=== PATIENT | female | born 1985 | race Caucasian/White ===

== ENCOUNTER → 2020-05-23 08:12 | Outpatient (BNVA) | payer OTHER, SELFPAY | PROVIDERS: PCP Internal Medicine; Visit Provider Dietitian, Registered ==

== ENCOUNTER 2020-06-06 08:47 | Outpatient (REF) | payer OTHER, SELFPAY ==
[2020-06-06 09:09] LABS: MANUAL DIFF FLAG NO
[2020-06-06 09:14] LABS: Basophils Percent Auto 0.4 % (0-2); Eosinophils Absolute Auto 0.1 X10*3/uL (0.0-0.4); Eosinophils Percent Auto 1.7 % (0-4); Hematocrit 32.9 % (37-47); Hemoglobin 10.8 g/dl (12.0-16.0); Imm Gran Abs Auto 0.01 X10*3/uL (0.00-0.03); Imm Gran Pct Auto 0.2 % (0.0-0.4); Lymphocytes Absolute Auto 2.2 X10*3/uL (1.2-4.9); Lymphocytes Percent Auto 46.5 % (20-40); Mean Corpuscular HGB Conc 32.8 g/dl (31.0-35.0); Mean Corpuscular Hemoglobin 25.1 pg (27.0-33.0); Mean Corpuscular Volume 76.3 fL (80-98); Mean Platelet Volume 9.4 fL (9.4-12.3); Monocytes Absolute Auto 0.3 X10*3/uL (0.1-1.2); Monocytes Percent Auto 6.6 % (2-11); Neutrophils Absolute Auto 2.1 X10*3/uL (2.0-8.3); Neutrophils Percent Auto 44.6 % (45-73); Platelet Count 277 X10*3/uL (160-400); Red Blood Count 4.31 X10*6/uL (4.20-5.50); Red Cell Distribution Width 13.5 % (11.0-16.0); White Blood Count 4.7 X10*3/uL (4.8-10.8)
[2020-06-06 09:35] LABS: Estimated Average Glucose 120 mg/dL; Hemoglobin A1c % 5.8 %
[2020-06-06 09:37] LABS: Alanine Aminotransferase 18 U/L (0-31); Alkaline Phosphatase 75 U/L (39-117); Anion Gap 10 (12-20); Aspartate Amino Transferase 17 U/L (5-31); Bilirubin Total 0.5 mg/dL (0.0-1.0); Blood Urea Nitrogen 11 mg/dL (9-16); C Reactive Protein 0.02 mg/dL (< or = 0.50); Carbon Dioxide 25 mmol/L (22-29); Chloride 105 mmol/L (96-108); Cholesterol 120 mg/dL; Estimated Glomerular Filt Rate > 60; Glucose Random 109 mg/dL (60-115); HDL Cholesterol 54 mg/dL; LDL Cholesterol Calculated 57 mg/dl; Sodium 136 mmol/L (135-145); Total Protein 6.5 g/dL (6.5-8.0); Triglycerides 47 mg/dL
[2020-06-06 09:57] LABS: TSH reflex Free T4 1.73 uIU/mL (0.32-4.0); Vitamin D 25-OH Total 19.9 ng/mL (>30)
[2020-06-06 10:28] LABS: Ferritin 3 ng/mL (10-122)
[2020-06-06 10:43] LABS: Folate 13.5 ng/mL (> or = 4.0); Vitamin B12 371 pg/mL (200-900)
[2020-06-07 09:57] LABS: Insulin Level Total 4.8 uIU/mL
[2020-06-10 10:41] LABS: Vitamin A 38 mcg/dL (38-98)
[2020-06-10 11:07] LABS: PTHI 33 pg/mL (14-64)
[2020-06-10 15:52] LABS: Zinc 72 mcg/dL (60-130)
[2020-06-12 12:37] LABS: Vitamin B1 <6 nmol/L (8-30)
== END 2020-06-06 08:48 | disposition home or self-care (01) ==
LOC: HO.LAB 08:47
PROVIDERS: Visit Provider Physician Assistant
DX: O99.840 Bariatric surgery status complicating pregnancy, unspecified trimester (principal); Z3A.00 Weeks of gestation of pregnancy not specified
CPT/HCPCS: 36415; 80053; 80061; 82306; 82607; 82728; 82746; 83036; 83525; 83970; 84425; 84443; 84590; 84630; 85025; 86140

== ENCOUNTER → 2020-06-12 07:54 | Outpatient (BNVA) | payer OTHER, SELFPAY | PROVIDERS: PCP Internal Medicine; Visit Provider Dietitian, Registered ==

== ENCOUNTER → 2020-08-06 09:21 | Outpatient (BNVA) | payer OTHER, SELFPAY | PROVIDERS: PCP Internal Medicine; Visit Provider Physician Assistant ==

== ENCOUNTER 2022-08-12 05:52 | Outpatient (REF) | payer OTHER, SELFPAY ==
[2022-08-12 06:10] LABS: MANUAL DIFF FLAG NO
[2022-08-12 07:46] LABS: Basophils Absolute Auto 0.1 X10*3/uL (0.0-0.2); Basophils Percent Auto 0.9 % (0-2); Eosinophils Absolute Auto 0.1 X10*3/uL (0.0-0.4); Eosinophils Percent Auto 2.4 % (0-4); Hemoglobin 7.3 g/dl (12.0-16.0); Imm Gran Abs Auto 0.01 X10*3/uL (0.00-0.03); Imm Gran Pct Auto 0.2 % (0.0-0.4); Lymphocytes Absolute Auto 2.1 X10*3/uL (1.2-4.9); Lymphocytes Percent Auto 39.9 % (20-40); Mean Corpuscular Hemoglobin 15.4 pg (27.0-33.0); Mean Platelet Volume 9.8 fL (9.4-12.3); Monocytes Absolute Auto 0.4 X10*3/uL (0.1-1.2); Neutrophils Absolute Auto 2.6 x10*3/uL (2.0-8.3); Neutrophils Percent Auto 49.6 % (45-73); Platelet Count 484 X10*3/uL (160-400); Red Blood Count 4.73 X10*6/uL (4.20-5.50); Red Cell Distribution Width 19.9 % (11.0-16.0); White Blood Count 5.3 X10*3/uL (4.8-10.8)
[2022-08-12 07:57] LABS: Estimated Average Glucose 151 mg/dL; Hemoglobin A1c % 6.9 %; Mean Corpuscular Volume 57.1 fL (80.0-98.0)
[2022-08-12 08:11] LABS: Alanine Aminotransferase 18 U/L (0-31); Albumin Level 4.1 g/dL (3.5-5.0); Alkaline Phosphatase 129 U/L (39-117); Anion Gap 14 (12-20); Aspartate Amino Transferase 20 U/L (5-31); Bilirubin Total 0.3 mg/dL (0.0-1.0); Blood Urea Nitrogen 10 mg/dL (9-16); C Reactive Protein < 0.10 mg/dL (< or = 0.50); Calcium 9.3 mg/dL (8.4-10.2); Carbon Dioxide 25 mmol/L (22-29); Chloride 105 mmol/L (96-108); Cholesterol 140 mg/dL; Estimated Glomerular Filt Rate > 60; Glucose Random 139 mg/dL (60-115); HDL Cholesterol 43 mg/dL; Iron 11 mcg/dL (30-160); LDL Cholesterol Calculated 79 mg/dl; Percent Iron Saturation 2 % (15-50); Potassium 4.1 mmol/L (3.3-5.1); Sodium 140 mmol/L (135-145); Total Iron Binding Capacity 491 mcg/dL (228-428); Total Protein 6.6 g/dL (6.5-8.0); Triglycerides 93 mg/dL; Unsaturated Iron Binding 480 ug/dL
[2022-08-12 08:43] LABS: Ferritin 3 ng/mL (10-122); Folate 12.7 ng/mL (> or = 4.0); Insulin 9 uU/mL (2-29); Vitamin B12 721 pg/mL (200-900); Vitamin D 25-OH Total 20.8 ng/mL (>30)
[2022-08-13 14:08] LABS: Calcium (PTHI) 9.3 mg/dL (8.6-10.2); PTHI 41 pg/mL (16-77)
[2022-08-17 01:28] LABS: Zinc 74 mcg/dL (60-130)
[2022-08-18 16:48] LABS: Vitamin B1 12 nmol/L (8-30)
[2022-08-19 16:29] LABS: Vitamin A 42 mcg/dL (38-98)
== END 2022-08-12 05:53 | disposition home or self-care (01) ==
LOC: HO.LAB 05:52
PROVIDERS: PCP Internal Medicine; Visit Provider Physician Assistant Surgical
DX: E66.9 Obesity, unspecified (principal); R10.9 Unspecified abdominal pain; K91.2 Postsurgical malabsorption, not elsewhere classified; Z98.84 Bariatric surgery status
CPT/HCPCS: 36415; 80053; 80061; 82306; 82607; 82728; 82746; 83036; 83525; 83540; 83970; 84425; 84443; 84590; 84630; 85025; 86140

== ENCOUNTER 2022-08-17 06:15 | Day surgery (SDC) | payer OTHER, SELFPAY ==
--- NOTE | 2022-08-16 09:47 | HO.ANESPROP2 ---
Documented by User: Taina Almodovar NP 08/16/22 09:48 HPI - Anesthesia Eval Consult details Narrative: 37yo F for Upper Endoscopy PMFSH Active Problems Active Problems: All Active Problems (Updated 08/12/22 @ 17:00 by SHANNAN Butt) Abdominal pain (Acute) Obesity (Acute) History of Rogelio-en-Y gastric bypass (Acute) (Acute) Family History Family History Father Heart disease HTN (hypertension) Hyperlipidemia Mother COPD (chronic obstructive pulmonary disease) Diabetes Obesity Fibromyalgia HTN (hypertension) Hyperlipidemia Son No problems noted. Daughter No problems noted. Surgical History Surgical History History of Rogelio-en-Y gastric bypass Hx laparoscopic cholecystectomy Hx of section Hx of tonsillectomy S/P eye surgery Social History Social History Alcohol intake: never Patient Tobacco Use Status: Never used Tobacco Second Hand Smoke Exposure: No Meds Allergies Allergy/AdvReac Type Severity Reaction Status Date / Time insulin glargine Allergy Unknown WELTS,BRUISING, Verified 08/12/22 16:10 [From LANTUS U-100 INSULIN] BRUSING Home Medications Medication Instructions Recorded Confirmed Last Taken Type docusate sodium 100 mg capsule 100 mg PO DAILY 08/06/20 08/17/22 Unknown History nccvrdxs-itkawyev-lhst 45 mg-folic 1 cap PO DAILY 08/06/20 08/17/22 Unknown History acid 800 mcg-vit K 120 mcg capsule (Bariatric Multivitamins) hydrochlorothiazide 25 mg tablet 12.5 mg PO DAILY 08/12/22 08/17/22 08/17/22 History lisinopril 10 mg tablet 10 mg PO DAILY 08/17/22 08/17/22 Unknown History semaglutide 0.25 mg or 0.5 mg (2 0.25 mg subcut QWEEK 08/17/22 08/17/22 Unknown History mg/3 mL) subcutaneous pen injector (Ozempic) Exam Exam Date and Time: August 16, 2022 0947 Pertinent Lab Results Pertinent Lab Results: Laboratory Tests 08/12/22 08/12/22 06:06 06:06 WBC 5.3 Hgb 7.3 L Hct 27.0 L Plt Count 484 H Sodium 140 Potassium 4.1 Chloride 105 Carbon Dioxide 25 BUN 10 Creatinine 0.74 Assessment and Plan Assessment Anesthesia Assessment: Chart Reviewed Documented by User: Corina Davila MD 08/17/22 09:29 PMF Active Problems Active Problems: All Active Problems (Updated 08/17/22 @ 07:23 by Corina Davila MD) Abdominal pain (Acute) Obesity (Acute) History of Rogelio-en-Y gastric bypass (Acute) (Acute) Denies MATT HTN Family History Family History Father Heart disease HTN (hypertension) Hyperlipidemia Mother COPD (chronic obstructive pulmonary disease) Diabetes Obesity Fibromyalgia HTN (hypertension) Hyperlipidemia Son No problems noted. Daughter No problems noted. Family history of problems with anesthesia: No Surgical History Surgical History History of Rogelio-en-Y gastric bypass Hx laparoscopic cholecystectomy Hx of section Hx of tonsillectomy S/P eye surgery History of Problems with Anesthesia: No Social History Social History Alcohol intake: never Patient Tobacco Use Status: Never used Tobacco Second Hand Smoke Exposure: No Meds Allergies Allergy/AdvReac Type Severity Reaction Status Date / Time insulin glargine Allergy Unknown WELTS,BRUISING, Verified 08/12/22 16:10 [From LANTUS U-100 INSULIN] BRUSING Home Medications Medication Instructions Recorded Confirmed Last Taken Type docusate sodium 100 mg capsule 100 mg PO DAILY 08/06/20 08/17/22 Unknown History vrezaxfl-bshsfaxu-druj 45 mg-folic 1 cap PO DAILY 08/06/20 08/17/22 Unknown History acid 800 mcg-vit K 120 mcg capsule (Bariatric Multivitamins) hydrochlorothiazide 25 mg tablet 12.5 mg PO DAILY 08/12/22 08/17/22 08/17/22 History lisinopril 10 mg tablet 10 mg PO DAILY 08/17/22 08/17/22 Unknown History semaglutide 0.25 mg or 0.5 mg (2 0.25 mg subcut QWEEK 08/17/22 08/17/22 Unknown History mg/3 mL) subcutaneous pen injector (Ozempic) Exam Height,Weight and Vital Signs: Height 5 ft 4 in Weight 90.083 kg Vital Signs Temp Pulse Resp BP Pulse Ox O2 Del Method 08/17/22 07:04 97.5 F 79 16 144/84 H 99 Room Air Pertinent Lab Results Pertinent Lab Results: Laboratory Tests 08/12/22 08/12/22 06:06 06:06 WBC 5.3 Hgb 7.3 L Hct 27.0 L Plt Count 484 H Sodium 140 Potassium 4.1 Chloride 105 Carbon Dioxide 25 BUN 10 Creatinine 0.74 Lab Results 08/16/22 08/17/22 08/17/22 Range/Units 14:35 06:47 06:57 POC Glucose 120 H (60-115) mg/dL Urine Test NEGATIVE (NEGATIVE) COVID-19 (CARMINA) Negative (Negative) COVID-19 Clin Com See Note Airway Mallampati Class: III TM Dist: >3cm Neck ROM: Full Loose/Missing/Broken Teeth: Yes (?Broken/missing tooth bottom left back) Heart: RRR Lungs: CTAB Assessment and Plan Assessment Anesthesia Assessment: Anesthesia Plan Discussed Final Anesthetic Review Family History of Problems with Anesthesia: No History of Problems with Anesthesia: No NPO: Yes ASA Class: III Final Preanesthetic Review: No Changes in Pt Med Stat, Meds/Allgs Chart Reviewed, Consent Obtained/Reviewed and Anes Risks/Benef Reviewed Patient Risk: Intermediate Procedure Risk: Low Assessment/Block/Sedation in SS: Assess/Block/Sedation-SS Anesthetic Plan Anesthetic Plan: MAC: Disposition: Standard PACU
[2022-08-16 14:56] LABS: COVID-19 Test Negative (Negative); IDNOW Serial# 55D5AD1C
[2022-08-17 06:48] VITALS: BMI 34.1
[2022-08-17 07:01] LABS: UPreg QC Valid YES; Urine Pregnancy NEGATIVE (NEGATIVE)
[2022-08-17 07:01] LABS: Glucose, Whole Blood 120 mg/dL (60-115)
[2022-08-17 07:04] VITALS: BP 144/84; PULSE 79; RESP 16; TEMP 36.4; O2SAT 99
[2022-08-17] MEDS: Lactated Ringers 1,000 ML 80 ML IVCONT (07:06)
[2022-08-17 07:57] VITALS: BP 115/53; PULSE 83; RESP 22; TEMP 36.4; O2SAT 100
--- NOTE | 2022-08-17 08:02 | P.BOP_ITS ---
Brief Operative Note Date of Service: 08/17/22 Pre-op diagnosis: Epigastric pain Post-op diagnosis: same (& small anastomotic ulcer) Procedure: PROCEDURE DATE: 08/17/22 PREOPERATIVE DIAGNOSIS: GERD, s/p gastric bypass POSTOPERATIVE DIAGNOSIS: ?Same as above. Anastomotic ulcer PROCEDURE: Ivkqnnab-lmzalh-txzhyssmjfp with biopsies Surgeon: ?Alexandre Schaefer M.D.. Ph.D. Postal Inspector: ?None ? Anesthesia: IV sedation Estimated blood loss: ?Minimal FINDINGS AND PROCEDURE: ? OPERATIVE INDICATIONS: ?The patient is a 37 year old female known to me who underwent a laparoscopic gastric bypass by me. The patient had an anastomotic ulcer duirng her 2 years ago which was treated elsewhere. Since then has gained 30lbs and presents of recurrent epigastric pain despite continuous use of Omeprazole.? Based on this information I recommended an upper endoscopy to evaluate the patient's symptoms.? Risks and complications of the surgery were discussed with the patient in advance particularly the possibility of perforation or bleeding that may require surgical intervention. The patient understood the risks and was in agreement with the plan. ? PROCEDURE: After informed consent was obtained by the patient, the patient was ?transferred to the Operating Room and was placed in the supine position.? After successful induction of IV sedation, a mouth block was placed and the patient was placed in the left lateral decubitus position. An upper endoscopy was performed next, the oropharynx and esophagus appeared within the normal limits. There was no hiatal hernia.? The z-line was smooth. The small pouch was entered, appeared to be of normal size. There was no gastritis and the gastrojejunostomy was patent. A biopsy was obtained from the gastric pouch. No significant bleeding was noted from any of the biopsy sites. There was a small anastomotic ulcer at 6pm position. It does not appear deep.? At that point the scope was advanced into the proximal small intestine (proximal Rogelio limb) up to 55cm from incisors which appeared to be normal as well. The Rogelio limb and the pouch were decompressed and the scope was withdrawn from the patient's mouth. The patient was awaken and was transferred in stable condition to the Recovery Room for further care. I was present and performed all steps of the procedure. There were no residents to assist with this case. Alexandre Schaefer M.D., Ph.D. Surgeon: Mac Schaefer MD Anesthesia: MAC Was an Postal Inspector used for this Procedure?: No Estimated blood loss (mL): 0 IV fluids (mL): 400 Urine output (mL): 0 Pathology: other (Gastric pouch x1) Condition: stable Disposition: PACU
[2022-08-17 08:11] VITALS: BP 124/76; PULSE 82; RESP 20; TEMP 36.3; O2SAT 100
== END 2022-08-17 08:55 | disposition home or self-care (01) ==
PROVIDERS: Nurse Practitioner; Physician Assistant Surgical; PCP Internal Medicine; Visit Provider Surgery
PROC: 0DJ08ZZ Inspection of Upper Intestinal Tract, Via Natural or Artificial Opening Endoscopic (ICD-10-PCS; CPT 43235; principal; 2022-08-17 07:30)
DX: K28.9 Gastrojejunal ulcer, unspecified as acute or chronic, without hemorrhage or perforation (principal); Z98.84 Bariatric surgery status; E66.9 Obesity, unspecified; Z68.34 Body mass index [BMI] 34.0-34.9, adult; K21.9 Gastro-esophageal reflux disease without esophagitis; Z79.899 Other long term (current) drug therapy; Z88.8 Allergy status to other drugs, medicaments and biological substances; Z20.822 Contact with and (suspected) exposure to COVID-19
CPT/HCPCS: 43239; 81025; 82947; 87635; 88305; 88342

== ENCOUNTER → 2022-08-31 12:04 | Outpatient (BNVA) | payer OTHER, SELFPAY | PROVIDERS: PCP Internal Medicine; Visit Provider Physician Assistant Surgical ==

== ENCOUNTER 2022-09-05 09:00 | Emergency (ER) | payer OTHER, SELFPAY ==
--- NOTE | ~2022-09-05 | CT_ITS ---
EXAMINATION: CT ABDOMEN AND PELVIS WITHOUT CONTRAST CLINICAL INFORMATION: Right flank pain. COMPARISON: Abdominal ultrasound and upper GI series dated 06/26/2021. TECHNIQUE: Multidetector volumetric imaging was performed from the superior aspect of the liver through the pubic symphysis. Sagittal and coronal reformatted images were obtained on the technologist's workstation. This CT examination was performed using dose optimization techniques as appropriate, variously including the following: *Automated exposure control *Adjustment of mA and/or kV according to patient size (this includes techniques or standardized protocols for targeted exams where dose is matched to indication/reason for exam; i.e. extremities or head) *Use of iterative reconstruction technique DLP: 626 mGy-cm. FINDINGS: LUNG BASES: The visualized lung bases are unremarkable. LIVER, GALLBLADDER, AND BILIARY TREE: The liver is normal in size, shape, and attenuation. No focal hepatic lesion or biliary ductal dilatation is present. Status post cholecystectomy. PANCREAS: Unremarkable. SPLEEN: Unremarkable. ADRENAL GLANDS: Unremarkable. KIDNEYS AND URETERS: Lobulated bilateral renal contour. Right ureterovesicular junction stone measuring up to 0.7 x 0.4 cm with moderate right hydroureteronephrosis and mild adjacent stranding. There are multiple additional bilateral 0.2 cm renal stones. No left-sided ureteral stone. No left hydroureter or hydronephrosis. BLADDER: Nondistended and unremarkable. GASTROINTESTINAL TRACT: Surgical change consistent with Rogelio-en-Y gastric bypass. Unremarkable gastrojejunal and jejunojejunal anastomoses. Mild stool burden. No small or large bowel obstruction. No bowel wall thickening or inflammatory change. Unremarkable appendix. PERITONEAL CAVITY: No intra-abdominal free air or free fluid. No intra-abdominal mass or organized fluid collection/abscess formation. ABDOMINAL WALL: No significant hernia is appreciated. LYMPH NODES: No significant lymphadenopathy. VASCULAR: Unremarkable. PELVIC VISCERA: Left adnexal simple-appearing cyst measuring up to 4.2 cm. No followup imaging recommended. The visualized pelvic structures are otherwise unremarkable. OSSEOUS STRUCTURES: Unremarkable. CT/CT abdomen pelvis wo IV con IMPRESSION: 1. Right ureterovesicular junction stone measuring up to 0.7 cm with moderate right-sided hydroureteronephrosis and mild adjacent stranding. Multiple additional bilateral 0.2 cm renal stones. No left-sided hydronephrosis or hydroureter. 2. Surgical change consistent with Rogelio-en-Y gastric bypass. No small or large bowel obstruction. No bowel wall thickening or inflammatory change. Unremarkable appendix. 3. Simple-appearing left adnexal cyst measuring up to 4.2 cm. No followup imaging recommended. Fleischner guidelines were followed.
[2022-09-05 09:07] VITALS: BP 175/98; PULSE 20; RESP 18; TEMP 36.4; O2SAT 100; BMI 32.6
--- NOTE | 2022-09-05 09:36 | ED_ITS ---
HPI - General Adult General Chief complaint: Abdominal Pain Stated complaint: R flank pain Time Seen by Provider: 09/05/22 09:19 Source: patient Mode of arrival: ambulatory Limitations: no limitations History of Present Illness HPI narrative: Patient is a 37-year-old female with history of gastric bypass, anastomotic ulcer status post gastric bypass presenting with right flank pain, nausea, and vomiting since this morning. Patient states that 2 days ago she developed suprapubic pressure with urinating and her pain BM this morning with a sudden onset. She denies any fevers, hematuria or dysuria. She denies any history of kidney stones in the past. She denies any abdominal pain, diarrhea or constipation. She denies any chest pain or shortness of breath. She denies any saddle anesthesia or bowel or bladder incontinence. MD complaint: Right flank pain Onset (ago): hour(s) Location: back Severity: severe Severity scale (1-10): 10 Quality: sharp Pain Consistency: constant Relieving factors: none Associated symptoms: nausea/vomiting Related Data Home Medications Medication Instructions Recorded Confirmed docusate sodium 100 mg capsule 100 mg PO DAILY 08/06/20 08/31/22 [id number] 45 mg-folic 1 cap PO DAILY 08/06/20 08/31/22 acid 800 mcg-vit K 120 mcg capsule (Bariatric Multivitamins) hydrochlorothiazide 25 mg tablet 12.5 mg PO DAILY 08/12/22 08/31/22 lisinopril 10 mg tablet 10 mg PO DAILY 08/17/22 08/31/22 semaglutide 0.25 mg or 0.5 mg (2 0.25 mg subcut QWEEK 08/17/22 08/31/22 mg/3 mL) subcutaneous pen injector (Ozempic) sucralfate 100 mg/mL oral 10 ml PO QID 08/31/22 suspension Previous Rx's Medication Instructions Recorded ferrous sulfate 325 mg (65 mg 325 mg PO DAILY #30 tabs 06/13/20 iron) tablet cholecalciferol (vitamin D3) 50 50 mcg PO DAILY #90 caps 08/12/22 mcg (2,000 unit) capsule pantoprazole 40 mg tablet,delayed 40 mg PO DAILY #90 tabs 08/12/22 release ondansetron 4 mg disintegrating 4 mg PO Q8H PRN nausea and 08/31/22 tablet vomiting #30 tabs hydromorphone 2 mg tablet 2 mg PO Q6H PRN pain #8 tabs 09/05/22 ondansetron 4 mg disintegrating 4 mg PO Q8H PRN nausea and 09/05/22 tablet vomiting #14 tabs tamsulosin 0.4 mg capsule 0.4 mg PO DAILY #7 caps 09/05/22 Allergies Allergy/AdvReac Type Severity Reaction Status Date / Time insulin glargine Allergy Unknown WELTS,BRUISING, Verified 09/05/22 09:10 [From LANTUS U-100 INSULIN] BRUSING Review of Systems Review of Systems: Yes all other systems are reviewed and are negative Constitutional: Constitutional: Reports no additional constitutional complaints Eyes: Eyes: Reports no additional eye complaints ENT: Reports system reviewed and no additional complaints, except as document ed and Denies neck pain Cardiovascular: Cardiovascular: Reports no additional cardiovascular complaints Respiratory: Respiratory: Reports no additional respiratory complaints Gastrointestinal: Gastrointestinal: Denies abdominal pain, Denies constipation, Denies diarrhea, Reports vomiting and Denies hematemesis Genitourinary: Genitourinary: Denies hematuria, Denies urinary frequency, Denies difficulty voiding, Denies dysuria, Reports flank pain and Denies urinary urgency Musculoskeletal: Musculoskeletal: Reports back pain, Denies neck pain, Denies numbness, Denies radiating pain into limb and Denies tingling Integumentary/Breasts: Skin/Breast: Reports system reviewed and no additional complaints, except as docu Neurologic: Reports system reviewed and no additional complaints, except as documented, Denies numbness and Denies tingling Psychiatric: Psychiatric: Reports no additional psychiatric complaints Endocrine: Endocrine: Reports no additional endocrine complaints Hematologic/Lymphatic: Hematologic/Lymphatic: Reports no additional hematologic/lymphatic complaints Allergic/Immunologic: Allergic/Immunologic: Reports no additional allergic/immunologic complaints PMFSH Past Medical History Surgical History History of Rogelio-en-Y gastric bypass Hx laparoscopic cholecystectomy Hx of section Hx of tonsillectomy S/P eye surgery Family History Family History Father Heart disease HTN (hypertension) Hyperlipidemia Mother COPD (chronic obstructive pulmonary disease) Diabetes Obesity Fibromyalgia HTN (hypertension) Hyperlipidemia Son No problems noted. Daughter No problems noted. Social History Social History Alcohol intake: never Patient Tobacco Use Status: Never used Tobacco Second Hand Smoke Exposure: No Advance Directives: No Advance Directives Information Provided: No Physical Exam ED Vital Signs: Vital Signs - 24 hr 09/05/22 09:07 09/05/22 10:20 09/05/22 11:57 Temperature 97.6 F 98.1 F 98.1 F Pulse Rate 20 L 81 72 Respiratory Rate 18 20 16 Blood Pressure 175/98 H 162/85 H 126/80 Pulse Oximetry 100 100 100 Oxygen Delivery Method Room Air Room Air Room Air 09/05/22 14:10 Temperature 97.8 F Pulse Rate 86 Respiratory Rate 18 Blood Pressure 137/84 Pulse Oximetry 98 Oxygen Delivery Method Room Air BMI result Body Mass Index 32.6 Vital signs have been reviewed and appear to be correct. Blood pressure elevated but patient believes she vomited her BP medication at home this morning. Heart rate normal. Respiratory rate normal. Temperature normal. Oxygen saturation normal. Const Other: Patient pacing around exam room, states is more comfortable than sitting on stretcher, appears uncomfortable General: cooperative and healthy appearing; No comfortable Orientation/consciousness: oriented to person, oriented to place, oriented to time and patient oriented x3 Limitations: no limitations HENMT Head: Yes normocephalic and Yes atraumatic Ears: external ears normal General nose exam: Normal external nose present Face and sinus: Yes face symmetric Mouth: oropharynx normal and moist mucous membranes Throat: Yes uvula midline Eyes Pupils: Equal, round and reactive pupils present Neck Neck: Yes normal visual inspection and Yes supple Resp Effort & Inspection: normal respiratory effort and able to speak in complete sentences Auscultation: clear to auscultation bilaterally Cardio Rate: regular rate Rhythm: regular rhythm Heart sounds: S1 normal heart sound present and S2 normal heart sound present GI Palpation (GI): Soft to palpation and nontender Auscultation: normoactive bowel sounds General: Yes CVA tenderness on the right Back/Spine/Pelvis Back: CVA tenderness Skin General skin exam: elasticity normal and turgor normal Neuro General: oriented to person, oriented to place, oriented to time, patient oriented x3, moves all extremities, no focal motor deficits and CN's II-XI intact bilaterally Cranial nerves: Yes Equal, round and reactive pupils present Cognition (Neuro): normal cognition Extrem General: Yes full ROM, Yes no pedal edema and Yes no calf tenderness Psych Mental Status: mental status grossly normal Affect: normal affect Thought process: Normal thought process present Course Course Course Narrative: 11:55 FINDINGS: LUNG BASES: The visualized lung bases are unremarkable.? LIVER, GALLBLADDER, AND BILIARY TREE: The liver is normal in size, shape, and attenuation. No focal hepatic lesion or biliary ductal dilatation is present. Status post cholecystectomy.? PANCREAS: Unremarkable.? SPLEEN: Unremarkable.? ADRENAL GLANDS: Unremarkable.? KIDNEYS AND URETERS: Lobulated bilateral renal contour. Right ureterovesicular junction stone measuring up to 0.7 x 0.4 cm with moderate right hydroureteronephrosis and mild adjacent stranding. There are multiple additional bilateral 0.2 cm renal stones. No left-sided ureteral stone. No left hydroureter or hydronephrosis.? BLADDER: Nondistended and unremarkable.? GASTROINTESTINAL TRACT: Surgical change consistent with Rogelio-en-Y gastric bypass. Unremarkable gastrojejunal and jejunojejunal anastomoses. Mild stool burden. No small or large bowel obstruction. No bowel wall thickening or inflammatory change. Unremarkable appendix. PERITONEAL CAVITY: No intra-abdominal free air or free fluid. No intra-abdominal mass or organized fluid collection/abscess formation. ABDOMINAL WALL: No significant hernia is appreciated.? LYMPH NODES: No significant lymphadenopathy. VASCULAR: Unremarkable. PELVIC VISCERA: Left adnexal simple-appearing cyst measuring up to 4.2 cm. No followup imaging recommended. The visualized pelvic structures are otherwise unremarkable.? OSSEOUS STRUCTURES: Unremarkable.? CT/CT abdomen pelvis wo IV con IMPRESSION: 1. Right ureterovesicular junction stone measuring up to 0.7 cm with moderate right-sided hydroureteronephrosis and mild adjacent stranding. Multiple additional bilateral 0.2 cm renal stones. No left-sided hydronephrosis or hydroureter. ? 2. Surgical change consistent with Rogelio-en-Y gastric bypass. No small or large bowel obstruction. No bowel wall thickening or inflammatory change. Unremarkable appendix. ? 3. Simple-appearing left adnexal cyst measuring up to 4.2 cm. No followup imaging recommended. ? Fleischner guidelines were followed. Labs reveal stable microcytic anemia, unchanged from most recent. Patient updated on results of CT scan. She reports that the initial dose of morphine decreased her pain, then the pain quickly returned. She states that the 2nd dose morphine for her pain down to a 1/10 but feels her pain is beginning to return in states it is currently 5/10. She expresses concern for being discharged home with outpatient follow-up with Urology and having her pain not b e manageable. Discussed with patient duration of pain relief from IV versus PO pain medication with PO lasting longer. Will give PO oxycodone here and reassess. All questions answered and patient agreeable with plan. 12:53 Patient denies any relief of pain after receiving oxycodone. Will medic ate with IV hydromorphone. [place] text to Dr. Mccollum. 13:20 Dr. Mccollum advises administration of one dose of prednisone here, discharge patient home on PO Dilaudid and Flomax, he will see her in the office tomorrow. 14:10 Patient reports good relief of pain from Dilaudid, was updated on recommendations from Dr. Minor, all questions answered and patient is agreeable to plan of care. Patient stable for discharge home with referral to Dr. Mccollum tomorrow. Patient states her will pick her up from the ED. Medications Administered Discontinued Medications Generic Name Dose Route Start Last Admin Trade Name Freq PRN Reason Stop Dose Admin Hydromorphone HCl 0.5 mg 09/05/22 12:54 09/05/22 13:04 Hydromorphone Hcl 0.5 Mg/0.5 Ml Syringe IVPUSH 09/05/22 12:55 0.5 mg ONCE ONE Administration Protocol Ketorolac Tromethamine 15 mg 09/05/22 10:19 09/05/22 10:32 Ketorolac Tromethamine 15 Mg/Ml Vial IVPUSH 09/05/22 10:20 15 mg ONCE ONE Administration Morphine Sulfate 4 mg 09/05/22 09:38 09/05/22 09:48 Morphine Sulfate 4 Mg/Ml Cartridge IVPUSH 09/05/22 09:39 4 mg ONCE ONE Administration Protocol Morphine Sulfate 4 mg 09/05/22 10:19 09/05/22 10:32 Morphine Sulfate 4 Mg/Ml Cartridge IVPUSH 09/05/22 10:20 4 mg ONCE ONE Administration Protocol Ondansetron HCl 4 mg 09/05/22 09:38 09/05/22 09:48 Ondansetron Hcl 4 Mg/2 Ml Vial IVPUSH 09/05/22 09:39 4 mg ONCE ONE Administration Ondansetron HCl 4 mg 09/05/22 11:52 09/05/22 12:01 Ondansetron Hcl 4 Mg/2 Ml Vial IVPUSH 09/05/22 11:53 4 mg ONCE ONE Administration Oxycodone HCl 5 mg 09/05/22 11:52 09/05/22 12:00 Oxycodone Hcl Immed Release 5 Mg Tablet PO 09/05/22 11:53 5 mg ONCE ONE Administration Medical Decision Making Medical Decision Making [facility] Narrative: Patient is a 37-year-old female with history of gastric bypass, anastomotic ulcer status post gastric bypass presenting with right flank pain, nausea, and vomiting since this morning. On exam patient is awake, A+Ox3, appears uncomfortable, pacing around room, pallor noted to skin, LS CTA throughout, abdomen soft and nontender, endorsing nausea, + right CVA tenderness. Given reported history and physical exam findings concern for nephrolithiasis versus UTI/pyelonephritis. Unlikely AAA rupture, epidural abscess, cauda equina, herniated disc, malignancy/mass, retroperitoneal hemorrhage. Plan: labs, UA, urine hcg, CT abdomen/pelvis, pain control, reassess Please refer course remaining clinical decision-making. Differential Diagnosis Differential Diagnoses: The differential diagnosis associated with the presentation includes As above. Admission/Observation Consideration of admission/observation: Escalation of care including admission/observation considered Consult Healthcare Provider Management of the patient was discussed with: Client Experience Administrator (Dr. Mccollum, urology) Lab Data [facility] Lab Attestation statement: I reviewed the patient's lab results. 09/05/22 09:52 Labs: Lab Results 09/05/22 09/05/22 09/05/22 Range/Units 09:52 09:54 09:54 WBC 6.8 (4.8-10.8) X10*3/uL RBC 4.73 (4.20-5.50) X10*6/uL Hgb 7.6 L (12.0-16.0) g/dl Hct 27.1 L (37.0-47.0) % MCV 57.3 L (80.0-98.0) fL MCH 16.1 L (27.0-33.0) pg MCHC 28.0 L (31.0-35.0) g/dl RDW 21.2 H (11.0-16.0) % Plt Count 534 H (160-400) X10*3/uL MPV 9.7 (9.4-12.3) fL Immature Gran % (Auto) 0.3 (0.0-0.4) % Neut % (Auto) 59.7 (45-73) % Lymph % (Auto) 31.5 (20-40) % Coffey % (Auto) 7.2 (2-11) % Eos % (Auto) 0.6 (0-4) % Baso % (Auto) 0.7 (0-2) % Lymph # (Auto) 2.1 (1.2-4.9) X10*3/uL Coffey # (Auto) 0.5 (0.1-1.2) X10*3/uL Eos # (Auto) 0.0 (0.0-0.4) X10*3/uL Baso # (Auto) 0.1 (0.0-0.2) X10*3/uL Abs Immat Gran (auto) 0.02 (0.00-0.03) X10*3/uL Absolute Neuts (auto) 4.1 (2.0-8.3) x10*3/uL Absolute Nucleated RBC 0.000 (0.0-0.012) X10*3/uL Nucleated RBC % (auto) 0.0 (0.0-0.2) /100WBC Sodium (135-145) mmol/L Potassium (3.3-5.1) mmol/L Chloride (96-108) mmol/L Carbon Dioxide (22-29) mmol/L Anion Gap (12-20) BUN (9-16) mg/dL Creatinine (0.5-1.4) mg/dL Estim Creat Clear Calc Estimated GFR Random Glucose (60-115) mg/dL Calcium (8.4-10.2) mg/dL Total Bilirubin (0.0-1.0) mg/dL Direct Bilirubin (0.0-0.5) mg/dL AST (5-31) U/L ALT (0-31) U/L Alkaline Phosphatase (39-117) U/L Total Protein (6.5-8.0) g/dL Albumin (3.5-5.0) g/dL Urine Color Yellow Urine Appearance Clear Urine pH 5.5 (5.0-9.0) Ur Specific Cerulean 1.015 (1.005-1.025) Urine Protein 30 (1+) H (Neg-Trace) mg/dL Urine Glucose (UA) Negative (Negative) mg/dL Urine Ketones Negative (Negative) mg/dL Urine Blood Small (1+) H (Negative) Urine Nitrite Negative (Negative) Ur Leukocyte Esterase Negative (Negative) Urine RBC 11-20 H (0-2) /HPF Urine WBC 0-5 (0-5) /HPF Ur Squamous Epith Cells 0-2 (0-2) /HPF Urine Bacteria Trace (None Seen) Hyaline Casts 0-2 (0-2) /LPF Urine Test NEGATIVE (NEGATIVE) 09/05/22 Range/Units 10:51 WBC (4.8-10.8) X10*3/uL RBC (4.20-5.50) X10*6/uL Hgb (12.0-16.0) g/dl Hct (37.0-47.0) % MCV (80.0-98.0) fL MCH (27.0-33.0) pg MCHC (31.0-35.0) g/dl RDW (11.0-16.0) % Plt Count (160-400) X10*3/uL MPV (9.4-12.3) fL Immature Gran % (Auto) (0.0-0.4) % Neut % (Auto) (45-73) % Lymph % (Auto) (20-40) % Coffey % (Auto) (2-11) % Eos % (Auto) (0-4) % Baso % (Auto) (0-2) % Lymph # (Auto) (1.2-4.9) X10*3/uL Coffey # (Auto) (0.1-1.2) X10*3/uL Eos # (Auto) (0.0-0.4) X10*3/uL Baso # (Auto) (0.0-0.2) X10*3/uL Abs Immat Gran (auto) (0.00-0.03) X10*3/uL Absolute Neuts (auto) (2.0-8.3) x10*3/uL Absolute Nucleated RBC (0.0-0.012) X10*3/uL Nucleated RBC % (auto) (0.0-0.2) /100WBC Sodium 136 (135-145) mmol/L Potassium 4.4 (3.3-5.1) mmol/L Chloride 106 (96-108) mmol/L Carbon Dioxide 24 (22-29) mmol/L Anion Gap 10 L (12-20) BUN 18 H (9-16) mg/dL Creatinine 0.82 (0.5-1.4) mg/dL Estim Creat Clear Calc 101.7 Estimated GFR > 60 Random Glucose 119 H (60-115) mg/dL Calcium 8.9 (8.4-10.2) mg/dL Total Bilirubin 0.4 (0.0-1.0) mg/dL Direct Bilirubin 0.1 (0.0-0.5) mg/dL AST 31 (5-31) U/L ALT 26 (0-31) U/L Alkaline Phosphatase 118 H (39-117) U/L Total Protein 6.5 (6.5-8.0) g/dL Albumin 4.0 (3.5-5.0) g/dL Urine Color Urine Appearance Urine pH (5.0-9.0) Ur Specific Cerulean (1.005-1.025) Urine Protein (Neg-Trace) mg/dL Urine Glucose (UA) (Negative) mg/dL Urine Ketones (Negative) mg/dL Urine Blood (Negative) Urine Nitrite (Negative) Ur Leukocyte Esterase (Negative) Urine RBC (0-2) /HPF Urine WBC (0-5) /HPF Ur Squamous Epith Cells (0-2) /HPF Urine Bacteria (None Seen) Hyaline Casts (0-2) /LPF Urine Test (NEGATIVE) Independent Interpretation I performed an independent interpretation of an: CT Scan Interpretation: I independently reviewed the CT scan and agree with the radiologist's interpretation. Radiology Impression Discussion of test interpretation with radiology: I have reviewed the radiologist's reading. Radiologist Impression: FINDINGS: LUNG BASES: The visualized lung bases are unremarkable.? LIVER, GALLBLADDER, AND BILIARY TREE: The liver is normal in size, shape, and attenuation. No focal hepatic lesion or biliary ductal dilatation is present. Status post cholecystectomy.? PANCREAS: Unremarkable.? SPLEEN: Unremarkable.? ADRENAL GLANDS: Unremarkable.? KIDNEYS AND URETERS: Lobulated bilateral renal contour. Right ureterovesicular junction stone measuring up to 0.7 x 0.4 cm with moderate right hydroureteronephrosis and mild adjacent stranding. There are multiple additional bilateral 0.2 cm renal stones. No left-sided ureteral stone. No left hydroureter or hydronephrosis.? BLADDER: Nondistended and unremarkable.? GASTROINTESTINAL TRACT: Surgical change consistent with Rogelio-en-Y gastric bypass. Unremarkable gastrojejunal and jejunojejunal anastomoses. Mild stool burden. No small or large bowel obstruction. No bowel wall thickening or inflammatory change. Unremarkable appendix. PERITONEAL CAVITY: No intra-abdominal free air or free fluid. No intra-abdominal mass or organized fluid collection/abscess formation. ABDOMINAL WALL: No significant hernia is appreciated.? LYMPH NODES: No significant lymphadenopathy. VASCULAR: Unremarkable. PELVIC VISCERA: Left adnexal simple-appearing cyst measuring up to 4.2 cm. No followup imaging recommended. The visualized pelvic structures are otherwise unremarkable.? OSSEOUS STRUCTURES: Unremarkable.? CT/CT abdomen pelvis wo IV con IMPRESSION: 1. Right ureterovesicular junction stone measuring up to 0.7 cm with moderate right-sided hydroureteronephrosis and mild adjacent stranding. Multiple additional bilateral 0.2 cm renal stones. No left-sided hydronephrosis or hydroureter. ? 2. Surgical change consistent with Rogelio-en-Y gastric bypass. No small or large bowel obstruction. No bowel wall thickening or inflammatory change. Unremarkable appendix. ? 3. Simple-appearing left adnexal cyst measuring up to 4.2 cm. No followup imaging recommended. ? Fleischner guidelines were followed. External Record Review External record reviewed: Inpatient record, Office record and Outpatient record Prescription Management I considered prescription management with: Pain Medication Chronic Conditions Patient?s care impacted by: Other (Gastric bypass) Discharge Plan Discharge Clinical Impression: Right nephrolithiasis Patient Disposition: Home, Self-Care Instructions: Kidney Stones (ED), Low Oxalate Diet (ED), How to Strain Your Urine (ED), Hydronephrosis (ED) Additional Instructions: You have been evaluated in the emergency department for your flank pain. Your pain is most likely due to a kidney stone which was visualized on your CT scan. You are being prescribed Dilaudid which is a strong narcotic pain medication. Do not drink alcohol, drive, or operate heavy machinery while taking this medication. You are also being prescribed Flomax, please take this medication as prescribed. The urologist, Dr. Mccollum, will see you in the office tomorrow. Please call their office first thing tomorrow morning. Return to the emergency department if you experience uncontrolled pain, fever, painful urination, inability to urinate, blood in urine, weakness, chest pain, difficulty breathing, or any other concerning symptoms. Prescriptions: New tamsulosin 0.4 mg capsule 0.4 mg PO DAILY Qty: 7 0RF ondansetron 4 mg tablet,disintegrating 4 mg PO Q8H PRN (Reason: nausea and vomiting) Qty: 14 0RF hydromorphone 2 mg tablet 2 mg PO Q6H PRN (Reason: pain) Qty: 8 0RF Rx Instructions: Partial Fill upon patient request. No Action ferrous sulfate 325 mg (65 mg iron) tablet 325 mg PO DAILY Qty: 30 8RF Rx Instructions: Take with 500m g Vitamin C, do not take with milk products. lisinopril 10 mg tablet 10 mg PO DAILY Ozempic 0.25 mg or 0.5 mg (2 mg/3 mL) pen injector 0.25 mg subcut QWEEK Bariatric Multivitamins 45 mg iron- 800 mcg-120 mcg capsule 1 cap PO DAILY docusate sodium 100 mg capsule 100 mg PO DAILY hydrochlorothiazide 25 mg tablet 12.5 mg PO DAILY pantoprazole 40 mg tablet,delayed release (DR/EC) 40 mg PO DAILY Qty: 90 3RF cholecalciferol (vitamin D3) 50 mcg (2,000 unit) capsule 50 mcg PO DAILY Qty: 90 3RF ondansetron 4 mg tablet,disintegrating 4 mg PO Q8H PRN (Reason: nausea and vomiting) Qty: 30 1RF sucralfate 100 mg/mL suspension 10 ml PO QID
[2022-09-05] MEDS: ondansetron HCL 4 MG/2 ML VIAL IVPUSH ×2 (09:48→12:01)
[2022-09-05] MEDS: Morphine Sulfate 4 MG/ML CARTRIDGE IVPUSH ×2 (09:48→10:32)
[2022-09-05 10:02] LABS: Basophils Absolute Auto 0.1 X10*3/uL (0.0-0.2); Basophils Percent Auto 0.7 % (0-2); Eosinophils Percent Auto 0.6 % (0-4); Hematocrit 27.1 % (37.0-47.0); Hemoglobin 7.6 g/dl (12.0-16.0); Imm Gran Abs Auto 0.02 X10*3/uL (0.00-0.03); Imm Gran Pct Auto 0.3 % (0.0-0.4); Lymphocytes Absolute Auto 2.1 X10*3/uL (1.2-4.9); Lymphocytes Percent Auto 31.5 % (20-40); MANUAL DIFF FLAG NO; Mean Corpuscular Hemoglobin 16.1 pg (27.0-33.0); Mean Platelet Volume 9.7 fL (9.4-12.3); Monocytes Absolute Auto 0.5 X10*3/uL (0.1-1.2); Monocytes Percent Auto 7.2 % (2-11); Neutrophils Absolute Auto 4.1 x10*3/uL (2.0-8.3); Neutrophils Percent Auto 59.7 % (45-73); Platelet Count 534 X10*3/uL (160-400); Red Blood Count 4.73 X10*6/uL (4.20-5.50); Red Cell Distribution Width 21.2 % (11.0-16.0); White Blood Count 6.8 X10*3/uL (4.8-10.8)
[2022-09-05 10:03] LABS: Appearance Urine Clear; Color Urine Yellow; Glucose Urine UA Negative (Negative); Leukocyte Esterase Urine Negative (Negative); Nitrite Urine Negative (Negative); PH 5.5 (5.0-9.0); Specific Gravity - Urine 1.015 (1.005-1.025); UMIC TRIGGER UACC YES; Urine Blood Small (1+) (Negative); Urine Ketones Negative (Negative); Urine Protein 30 (1+) mg/dL (Neg-Trace)
[2022-09-05 10:06] LABS: UPreg QC Valid YES; Urine Pregnancy NEGATIVE (NEGATIVE)
[2022-09-05 10:07] LABS: Mean Corpuscular Volume 57.3 fL (80.0-98.0)
[2022-09-05 10:16] LABS: Bacteria Urine Trace (None Seen); Hyaline Casts Urine 0-2 /LPF (0-2); Squamous Epithelial Cell Urine 0-2 /HPF (0-2); WBC Urine 0-5 /HPF (0-5)
[2022-09-05 10:20] VITALS: BP 162/85; PULSE 81; RESP 20; TEMP 36.7; O2SAT 100
[2022-09-05] MEDS: Ketorolac Tromethamine 15 MG/ML VIAL IVPUSH (10:32)
[2022-09-05 11:34] LABS: Alanine Aminotransferase 26 U/L (0-31); Alkaline Phosphatase 118 U/L (39-117); Anion Gap 10 (12-20); Aspartate Amino Transferase 31 U/L (5-31); Bilirubin Direct 0.1 mg/dL (0.0-0.5); Bilirubin Total 0.4 mg/dL (0.0-1.0); Blood Urea Nitrogen 18 mg/dL (9-16); Calcium 8.9 mg/dL (8.4-10.2); Carbon Dioxide 24 mmol/L (22-29); Chloride 106 mmol/L (96-108); Creatinine Clr Calc Pharmacy 101.7; Estimated Glomerular Filt Rate > 60; Glucose Random 119 mg/dL (60-115); Potassium 4.4 mmol/L (3.3-5.1); Sodium 136 mmol/L (135-145); Total Protein 6.5 g/dL (6.5-8.0)
[2022-09-05 11:57] VITALS: BP 126/80; PULSE 72; RESP 16; TEMP 36.7; O2SAT 100
[2022-09-05] MEDS: oxyCODONE HCl Immed Release 5 MG TABLET PO (12:00)
[2022-09-05] MEDS: HYDROmorphone HCl 0.5 MG/0.5 ML SYRINGE IVPUSH (13:04)
[2022-09-05 14:10] VITALS: BP 137/84; PULSE 86; RESP 18; TEMP 36.6; O2SAT 98
--- NOTE | 2022-09-05 14:45 | PC.NURSE ---
pt cleared for discharge, discharge instructions reviewed with pt. iv removed. vss.
== END 2022-09-05 14:47 | disposition home or self-care (01) ==
PROVIDERS: Registered Nurse Emergency; Emergency Provider Emergency Medicine Emergency Medical Services; PCP Internal Medicine
DX: N20.0 Calculus of kidney (principal); R10.31 Right lower quadrant pain; R11.2 Nausea with vomiting, unspecified; Z98.84 Bariatric surgery status; Z79.899 Other long term (current) drug therapy
CPT/HCPCS: 36415; 74176; 80048; 80076; 81001; 81025; 85025; 96374; 96375; 96376; 99284; J1170; J1885; J2270; J2405

== ENCOUNTER → 2022-09-06 08:50 | Outpatient (BNVA) | payer OTHER, SELFPAY | PROVIDERS: PCP Internal Medicine; Visit Provider Urology ==

== ENCOUNTER 2022-09-07 00:57 | Day surgery (SDC) | payer OTHER, SELFPAY ==
[2022-09-07] VITALS (11 sets, daily range): BP systolic 107–174; BP diastolic 51–94; PULSE 73–102; RESP 15–20; TEMP 36.3–36.9; O2SAT 95–99; BMI 32.6
--- NOTE | ~2022-09-07 | FL_ITS ---
EXAMINATION: XR FLUOROSCOPY WITH IMAGES CLINICAL INFORMATION: Right UVJ stone COMPARISON: Previous CT 09/07/2022 TECHNIQUE: Fluoroscopy Supervised By: Dr. Yeh. Fluoroscopy Time: 42 seconds. Cumulative Dose: 18.6 mGy. DAP: Gycm2. Images: 1. FINDINGS: Image demonstrates the proximal and of a right internal ureteral stent projecting over the right kidney. FL/FL guidance in OR IMPRESSION: Fluoroscopy guidance for urology procedure.
[2022-09-07 01:31] LABS: Basophils Percent Auto 0.3 % (0-2); Eosinophils Absolute Auto 0.1 X10*3/uL (0.0-0.4); Eosinophils Percent Auto 0.9 % (0-4); Hematocrit 25.4 % (37.0-47.0); Hemoglobin 7.2 g/dl (12.0-16.0); Imm Gran Abs Auto 0.02 X10*3/uL (0.00-0.03); Imm Gran Pct Auto 0.3 % (0.0-0.4); Lymphocytes Percent Auto 26.1 % (20-40); MANUAL DIFF FLAG NO; Mean Corpuscular HGB Conc 28.3 g/dl (31.0-35.0); Mean Corpuscular Hemoglobin 15.9 pg (27.0-33.0); Mean Platelet Volume 8.6 fL (9.4-12.3); Monocytes Absolute Auto 0.5 X10*3/uL (0.1-1.2); Monocytes Percent Auto 6.6 % (2-11); Neutrophils Absolute Auto 4.9 x10*3/uL (2.0-8.3); Neutrophils Percent Auto 65.8 % (45-73); Platelet Count 445 X10*3/uL (160-400); Red Blood Count 4.52 X10*6/uL (4.20-5.50); Red Cell Distribution Width 20.7 % (11.0-16.0); White Blood Count 7.5 X10*3/uL (4.8-10.8)
[2022-09-07 01:33] LABS: Mean Corpuscular Volume 56.2 fL (80.0-98.0)
--- NOTE | 2022-09-07 01:36 | ED.GENADULT ---
HPI - General Adult General Chief complaint: General Medical Stated complaint: ?kidney stones, vomiting Time Seen by Provider: 09/07/22 01:27 Source: patient Mode of arrival: ambulatory Limitations: no limitations History of Present Illness HPI narrative: 37-year-old female came in for evaluation of right flank pain, patient was seen in the emergency department evaluated for 7 mm right UVJ stone, patient was scheduled to have stent placement with lithotripsy sometime today patient cannot tolerate p.o. intake and food intake her pain medication due to intractable vomiting and severe right flank pain. Related Data Home Medications Medication Instructions Recorded Confirmed docusate sodium 100 mg capsule 100 mg PO DAILY 08/06/20 08/31/22 fsnifkwa-qsmygkot-phrb 45 mg-folic 1 cap PO DAILY 08/06/20 08/31/22 acid 800 mcg-vit K 120 mcg capsule (Bariatric Multivitamins) hydrochlorothiazide 25 mg tablet 12.5 mg PO DAILY 08/12/22 08/31/22 lisinopril 10 mg tablet 10 mg PO DAILY 08/17/22 08/31/22 semaglutide 0.25 mg or 0.5 mg (2 0.25 mg subcut QWEEK 08/17/22 08/31/22 mg/3 mL) subcutaneous pen injector (Ozempic) sucralfate 100 mg/mL oral 10 ml PO QID 08/31/22 suspension Previous Rx's Medication Instructions Recorded ferrous sulfate 325 mg (65 mg 325 mg PO DAILY #30 tabs 06/13/20 iron) tablet cholecalciferol (vitamin D3) 50 50 mcg PO DAILY #90 caps 08/12/22 mcg (2,000 unit) capsule pantoprazole 40 mg tablet,delayed 40 mg PO DAILY #90 tabs 08/12/22 release ondansetron 4 mg disintegrating 4 mg PO Q8H PRN nausea and 08/31/22 tablet vomiting #30 tabs hydromorphone 2 mg tablet 2 mg PO Q6H PRN pain #8 tabs 09/05/22 ondansetron 4 mg disintegrating 4 mg PO Q8H PRN nausea and 09/05/22 tablet vomiting #14 tabs tamsulosin 0.4 mg capsule 0.4 mg PO DAILY #7 caps 09/05/22 Allergies Allergy/AdvReac Type Severity Reaction Status Date / Time insulin glargine Allergy Unknown WELTS,BRUISING, Verified 09/07/22 01:03 [From LANTUS U-100 INSULIN] BRUSING Review of Systems Review of Systems: All other systems are reviewed and are negative Constitutional: Reports as per HPI and Reports no additional constitutional complaints Eyes: Reports as per HPI and Reports no additional eye complaints Reports system reviewed and no additional complaints, except as documented Cardiovascular: Reports as per HPI and Reports no additional cardiovascular complaints Respiratory: Reports as per HPI and Reports no additional respiratory complaints Gastrointestinal: Reports as per HPI and Reports no additional gastrointestinal complaints Genitourinary: Reports no additional female genitourinary complaints Musculoskeletal: Reports no additional musculoskeletal complaints Skin/Breast: Reports system reviewed and no additional complaints, except as docu Psychiatric: Reports no additional psychiatric complaints Endocrine: Reports no additional endocrine complaints Hematologic/Lymphatic: Reports no additional hematologic/lymphatic complaints Allergic/Immunologic: Reports no additional allergic/immunologic complaints Reports system reviewed and no additional complaints, except as documented and Reports Abnormal speech present PMFSH Past Medical History Surgical History History of Rogelio-en-Y gastric bypass Hx laparoscopic cholecystectomy Hx of section Hx of tonsillectomy S/P eye surgery Family History Family History Father Heart disease HTN (hypertension) Hyperlipidemia Mother COPD (chronic obstructive pulmonary disease) Diabetes Obesity Fibromyalgia HTN (hypertension) Hyperlipidemia Son No problems noted. Daughter No problems noted. Social History Social History Alcohol intake: never Patient Tobacco Use Status: Never used Tobacco Smoked in Last 30 Days: No Second Hand Smoke Exposure: No Use of substances other than those prescribed or required for medical reasons: No Advance Directives: No Advance Directives Information Provided: Yes Physical Exam ED Vital Signs: Vital Signs - 24 hr 09/07/22 00:58 09/07/22 02:26 Temperature 98.5 F 98.2 F Pulse Rate 79 80 Respiratory Rate 20 18 Blood Pressure 155/86 H 118/51 L Pulse Oximetry 96 96 Oxygen Delivery Method Room Air Room Air BMI result Body Mass Index 32.6 Vital signs have been reviewed as appeared to be correct. Blood pressure normal. Heart rate normal. Respiration rate normal. Temperature normal. Oxygen saturation normal. Appearance: Alert. Oriented X3. No acute distress. Head: Normal external exam. Normocephalic. Atraumatic. No Martinez signs noted. No raccoon eyes noted Eyes: PERRLA. EOMI. Conjunctiva and sclera normal. Eyelids normal. ENT: TM's Normal. Pharynx normal. Uvula midline. Moist mucous membranes. No trismus noted. No drooling noted. No muffled voice noted. Neck: Normal inspection. Neck supple. FROM. No adenopathy. Thyroid Normal. No meningeal signs. No neck mass noted. CVS: Normal heart rate and rhythm. Heart sound normal. No murmurs noted. Pulses normal throughout. Respiratory: No respiratory distress. Painless inspiration. Breath sounds normal. No wheezes/rales/rhonchi noted. Chest nontender. No accessory muscle usage noted or decreased air movement noted. Abdomen: Soft and nontender. Bowel sounds normal in all 4 quadrants. No distention noted. No organomegaly noted. No visible injury noted. Back: Right CVA tenderness. Full range of motion noted. Skin: Skin warm and dry. Normal skin color. Normal skin turgor. No rashes/lesions/lacerations noted. Extremities: No lower extremity edema. Extremities exhibit normal range of motion. Extremities nontender. Neuro: Oriented X 3. Cranial nerve exam: II-XII are grossly intact No motor deficit. No sensory deficit. Reflexes normal. Course Course Course Narrative: Right flank pain due to 7 mm right ureteric stone, patient cannot tolerate pain or p.o. intake causing her to come back to the emergency department. Case discussed with Dr. Pichardo was recommended to admit the patient for pain control, patient is scheduled to have lithotripsy and stent today by Dr. Mccollum. Medications Administered Discontinued Medications Generic Name Dose Route Start Last Admin Trade Name Freq PRN Reason Stop Dose Admin Hydromorphone HCl 1 mg 09/07/22 01:35 09/07/22 01:44 Hydromorphone Hcl 1 Mg/Ml Syringe IVPUSH 09/07/22 01:36 1 mg ONCE ONE Administration Protocol Hydromorphone HCl 1 mg 09/07/22 04:50 09/07/22 04:58 Hydromorphone Hcl 1 Mg/Ml Syringe IVPUSH 09/07/22 04:51 1 mg ONCE ONE Administration Protocol Sodium Chloride 1,000 mls @ 999 mls/hr 09/07/22 01:35 09/07/22 02:54 Ns IV 09/07/22 02:35 Infused .Q1H1M ONE Infusion Ondansetron HCl 4 mg 09/07/22 01:35 09/07/22 01:44 Ondansetron Hcl 4 Mg/2 Ml Vial IVPUSH 09/07/22 01:36 4 mg ONCE ONE Administration Medical Decision Making Differential Diagnosis Differential Diagnoses: The differential diagnosis associated with the presentation includes (Renal colic, UTI.) Admission/Observation Consideration of admission/observation: Escalation of care including admission/observation considered Consult Healthcare Provider Management of the patient was discussed with: Hospitalist (Dr. Marshall) and Right Of Way Agent (Dr. Pichardo) Lab Data MDM Lab Attestation statement: I reviewed the patient's lab results. 09/07/22 01:26 09/07/22 01:26 Labs: Lab Results 09/07/22 09/07/22 09/07/22 Range/Units 01: 01:26 01:26 WBC 7.5 (4.8-10.8) X10*3/uL RBC 4.52 (4.20-5.50) X10*6/uL Hgb 7.2 L (12.0-16.0) g/dl Hct 25.4 L (37.0-47.0) % MCV 56.2 L (80.0-98.0) fL MCH 15.9 L (27.0-33.0) pg MCHC 28.3 L (31.0-35.0) g/dl RDW 20.7 H (11.0-16.0) % Plt Count 445 H (160-400) X10*3/uL MPV 8.6 L (9.4-12.3) fL Immature Gran % (Auto) 0.3 (0.0-0.4) % Neut % (Auto) 65.8 (45-73) % Lymph % (Auto) 26.1 (20-40) % [place] % (Auto) 6.6 (2-11) % Eos % (Auto) 0.9 (0-4) % Baso % (Auto) 0.3 (0-2) % Lymph # (Auto) 2.0 (1.2-4.9) X10*3/uL [place] # (Auto) 0.5 (0.1-1.2) X10*3/uL Eos # (Auto) 0.1 (0.0-0.4) X10*3/uL Baso # (Auto) 0.0 (0.0-0.2) X10*3/uL Abs Immat Gran (auto) 0.02 (0.00-0.03) X10*3/uL Absolute Neuts (auto) 4.9 (2.0-8.3) x10*3/uL Absolute Nucleated RBC 0.000 (0.0-0.012) X10*3/uL Nucleated RBC % (auto) 0.0 (0.0-0.2) /100WBC Sodium 134 L (135-145) mmol/L Potassium 3.9 (3.3-5.1) mmol/L Chloride 102 (96-108) mmol/L Carbon Dioxide 21 L (22-29) mmol/L Anion Gap 15 (12-20) BUN 14 (9-16) mg/dL Creatinine 1.28 (0.5-1.4) mg/dL Estim Creat Clear Calc 65.1 Estimated GFR 47 Random Glucose 131 H (60-115) mg/dL Calcium 9.4 (8.4-10.2) mg/dL Total Bilirubin 0.3 (0.0-1.0) mg/dL Direct Bilirubin 0.1 (0.0-0.5) mg/dL AST 180 H (5-31) U/L ALT 304 H (0-31) U/L Alkaline Phosphatase 236 H (39-117) U/L Total Protein 7.0 (6.5-8.0) g/dL Albumin 4.2 (3.5-5.0) g/dL Lipase 26 (8-78) U/L Urine Color Yellow Urine Appearance Clear Urine pH 6.0 (5.0-9.0) Ur Specific [place] <= 1.005 (1.005-1.025) Urine Protein Negative (Neg-Trace) mg/dL Urine Glucose (UA) Negative (Negative) mg/dL Urine Ketones Negative (Negative) mg/dL Urine Blood Trace H (Negative) Urine Nitrite Negative (Negative) Ur Leukocyte Esterase Trace H (Negative) Urine RBC 0-2 (0-2) /HPF Urine WBC 6-10 H (0-5) /HPF Ur Squamous Epith Cells 0-2 (0-2) /HPF Urine Bacteria None Seen (None Seen) Hyaline Casts 0-2 (0-2) /LPF Independent Interpretation I performed an independent interpretation of an: CT Scan (Abdomen and pelvis done on 09/05: 7 mm stone in the right UVG.) Radiology Impression Discussion of test interpretation with radiology: I have reviewed the radiologist's reading. Discharge Plan Discharge Clinical Impression: Ureteral calculus, right Patient Disposition: Admitted As Inpatient
[2022-09-07 01:38] LABS: Appearance Urine Clear; Color Urine Yellow; Glucose Urine UA Negative (Negative); Leukocyte Esterase Urine Trace (Negative); Nitrite Urine Negative (Negative); Specific Gravity - Urine <= 1.005 (1.005-1.025); UMIC TRIGGER UACC YES; Urine Blood Trace (Negative); Urine Ketones Negative (Negative); Urine Protein Negative (Neg-Trace)
[2022-09-07 01:43] LABS: Bacteria Urine None Seen (None Seen); Hyaline Casts Urine 0-2 /LPF (0-2); RBC Urine 0-2 /HPF (0-2); Squamous Epithelial Cell Urine 0-2 /HPF (0-2); UACC Culture Trigger YES
[2022-09-07] MEDS: ondansetron HCL 4 MG/2 ML VIAL IVPUSH ×3 (01:44→14:12)
[2022-09-07] MEDS: HYDROmorphone HCl 1 MG/ML SYRINGE IVPUSH ×4 (01:44→14:03)
[2022-09-07] MEDS: 0.9 % Sodium Chloride 1,000 ML 999 ML IV (01:44)
[2022-09-07 01:51] LABS: Alanine Aminotransferase 304 U/L (0-31); Albumin Level 4.2 g/dL (3.5-5.0); Alkaline Phosphatase 236 U/L (39-117); Anion Gap 15 (12-20); Aspartate Amino Transferase 180 U/L (5-31); Bilirubin Direct 0.1 mg/dL (0.0-0.5); Bilirubin Total 0.3 mg/dL (0.0-1.0); Blood Urea Nitrogen 14 mg/dL (9-16); Calcium 9.4 mg/dL (8.4-10.2); Carbon Dioxide 21 mmol/L (22-29); Chloride 102 mmol/L (96-108); Creatinine Clr Calc Pharmacy 65.1; Estimated Glomerular Filt Rate 47; Glucose Random 131 mg/dL (60-115); Lipase 26 U/L (8-78); Potassium 3.9 mmol/L (3.3-5.1); Sodium 134 mmol/L (135-145)
--- NOTE | 2022-09-07 03:19 | PC.NURSE ---
Pt resting comfortably, no signs of distress. Will continue to monitor.
--- NOTE | 2022-09-07 04:09 | PC.NURSE ---
Pt ca&ox3, reporting 10/25 pain. made aware. Will continue to monitor.
--- NOTE | 2022-09-07 05:01 | PC.NURSE ---
Pt ca&ox3, no signs of distress. Pt reporting 8/10 right flank pain. Pt medicated per jun. Will continue to monitor.
--- NOTE | 2022-09-07 06:41 | PC.NURSE ---
Pt ca&ox3. Vitals stable. Pt resting comfortably. Will continue to monitor.
--- NOTE | 2022-09-07 06:44 | PC.NURSE ---
Pt ca&ox3. Vitals stable, no signs of distress. Pt resting comfortably. Will continue to monitor.
--- NOTE | 2022-09-07 08:24 | PHA.MEDREC ---
Pharmacy Consult ? Medication Reconciliation Pharmacy has completed the medication reconciliation. Patient reported all medications. She was just prescribed tamulosin and dilaudid a few days ago for the kidney stone. Aylin Garcia, PharmD
[2022-09-07 14:21] LABS: UPreg QC Valid YES; Urine Pregnancy NEGATIVE (NEGATIVE)
[2022-09-07 15:36] LABS: Glucose, Whole Blood 103 mg/dL (60-115)
--- NOTE | 2022-09-07 17:29 | P.CONAN_ITS ---
HPI - Anesthesia Eval Consult details Narrative: 37 Ffor ureteroscopy laser stent PMFSH Active Problems Active Problems: All Active Problems (Updated 09/07/22 @ 15:12 by Heidy Arriaga RN) (Acute) Obesity (Acute) Abdominal pain (Acute) Anastomotic ulcer S/P gastric bypass (Acute) Bilateral kidney stones (Acute) Hydronephrosis concurrent with and due to calculi of kidney and ureter (Acute) Ureteral calculus, right (Acute) History of Rogelio-en-Y gastric bypass (Acute) Past Medical History Medical History Diabetes HTN (hypertension) Hx of gastric ulcer Family History Family History Father Heart disease HTN (hypertension) Hyperlipidemia Mother COPD (chronic obstructive pulmonary disease) Diabetes Obesity Fibromyalgia HTN (hypertension) Hyperlipidemia Son No problems noted. Daughter No problems noted. Family history of problems with anesthesia: No Surgical History Surgical History History of Rogelio-en-Y gastric bypass Hx laparoscopic cholecystectomy Hx of section Hx of esophagogastroduodenoscopy Hx of tonsillectomy Hx of tubal ligation S/P eye surgery History of Problems with Anesthesia: No Social History Social History Alcohol intake: never Patient Tobacco Use Status: Never used Tobacco Smoked in Last 30 Days: No Second Hand Smoke Exposure: No Use of substances other than those prescribed or required for medical reasons: No Are you DNR?: No Advance Directives: No Advance Directives Information Provided: Yes Meds Allergies Allergy/AdvReac Type Severity Reaction Status Date / Time insulin glargine Allergy Unknown WELTS,BRUISING, Verified 09/07/22 01:03 [From LANTUS U-100 INSULIN] BRUSING Active Medications: Current Medications Lactated Ringer's (Lr) 1,000 mls @ 100 mls/hr IVCONT .Q10H [facility] Home Medications Medication Instructions Recorded Confirmed Last Taken Type vdbwiijv-nfzpuilj-cech 45 mg-folic 1 cap PO DAILY 08/06/20 09/07/22 09/06/22 History acid 800 mcg-vit K 120 mcg capsule (Bariatric Multivitamins) hydrochlorothiazide 25 mg tablet 12.5 mg PO DAILY 08/12/22 09/07/22 09/06/22 History 12.5 lisinopril 10 mg tablet 10 mg PO DAILY 08/17/22 09/07/22 09/06/22 History 10 semaglutide 0.25 mg or 0.5 mg (2 0.5 mg subcut SA 08/17/22 09/07/22 09/06/22 History mg/3 mL) subcutaneous pen injector (Ozempic) sucralfate 100 mg/mL oral 10 ml PO QID 08/31/22 09/07/22 09/06/22 History suspension Exam Exam Date and Time: September 07, [id number] Height,Weight and Vital Signs: Height 5 ft 4 in Weight 190 lb Last Vital Signs Temp 98.0 F 09/07/22 15:30 Pulse 80 09/07/22 15:30 Resp 15 09/07/22 15:30 BP 155/83 H 09/07/22 15:30 Pulse Ox 99 09/07/22 15:30 O2 Del Method Room Air 09/07/22 15:30 Pertinent Lab Results Pertinent Lab Results: Laboratory Tests 09/07/22 09/07/22 09/07/22 01:26 01:26 01:26 WBC 7.5 RBC 4.52 Hgb 7.2 L Hct 25.4 L MCV 56.2 L MCH 15.9 L MCHC 28.3 L RDW 20.7 H Plt Count 445 H MPV 8.6 L Immature Gran % (Auto) 0.3 Neut % (Auto) 65.8 Lymph % (Auto) 26.1 [place] % (Auto) 6.6 Eos % (Auto) 0.9 Baso % (Auto) 0.3 Lymph # (Auto) 2.0 [place] # (Auto) 0.5 Eos # (Auto) 0.1 Baso # (Auto) 0.0 Abs Immat Gran (auto) 0.02 Absolute Neuts (auto) 4.9 Absolute Nucleated RBC 0.000 Nucleated RBC % (auto) 0.0 Sodium 134 L Potassium 3.9 Chloride 102 Carbon Dioxide 21 L Anion Gap 15 BUN 14 Creatinine 1.28 Estim Creat Clear Calc 65.1 Estimated GFR 47 POC Glucose Random Glucose 131 H Calcium 9.4 Total Bilirubin 0.3 Direct Bilirubin 0.1 AST 180 H ALT 304 H Alkaline Phosphatase 236 H Total Protein 7.0 Albumin 4.2 Lipase 26 Urine Color Yellow Urine Appearance Clear Urine pH 6.0 Ur Specific [place] <= 1.005 Urine Protein Negative Urine Glucose (UA) Negative Urine Ketones Negative Urine Blood Trace H Urine Nitrite Negative Ur Leukocyte Esterase Trace H Urine RBC 0-2 Urine WBC 6-10 H Ur Squamous Epith Cells 0-2 Urine Bacteria None Seen Hyaline Casts 0-2 Urine Test 09/07/22 09/07/22 01:26 15:32 WBC RBC Hgb Hct MCV MCH MCHC RDW Plt Count MPV Immature Gran % (Auto) Neut % (Auto) Lymph % (Auto) [place] % (Auto) Eos % (Auto) Baso % (Auto) Lymph # (Auto) [place] # (Auto) Eos # (Auto) Baso # (Auto) Abs Immat Gran (auto) Absolute Neuts (auto) Absolute Nucleated RBC Nucleated RBC % (auto) Sodium Potassium Chloride Carbon Dioxide Anion Gap BUN Creatinine Estim Creat Clear Calc Estimated GFR POC Glucose 103 Random Glucose Calcium Total Bilirubin Direct Bilirubin AST ALT Alkaline Phosphatase Total Protein Albumin Lipase Urine Color Urine Appearance Urine pH Ur Specific [place] Urine Protein Urine Glucose (UA) Urine Ketones Urine Blood Urine Nitrite Ur Leukocyte Esterase Urine RBC Urine WBC Ur Squamous Epith Cells Urine Bacteria Hyaline Casts Urine Test NEGATIVE Airway Mallampati Class: I TM Dist: >3cm Neck ROM: Full Loose/Missing/Broken Teeth: Yes Assessment and Plan Assessment Anesthesia Assessment: Anesthesia Plan Discussed and Chart Reviewed Final Anesthetic Review Family History of Problems with Anesthesia: No History of Problems with Anesthesia: No NPO: Yes ASA Class: III Final Preanesthetic Review: No Changes in Pt Med Stat, Meds/Allgs Chart Reviewed, Consent Obtained/Reviewed and Anes Risks/Benef Reviewed Patient Risk: Intermediate Procedure Risk: Low Anesthetic Plan Anesthetic Plan: GA Disposition: Standard PACU
--- NOTE | 2022-09-07 18:25 | P.OP_ITS ---
Operative Note Operative Note Date of Service: 09/07/22 Narrative: PreOperative Diagnosis:?? right ureteral stone Post Operative Diagnosis:?? right ureteral stone Procedure: - cystoscopy, right retrograde, right ureteroscopy laser lithotripsy stent insertion, 6 Bangladeshi by multi length cm Surgeon:?Dr Annette Yeh Anesthesia:? General Indications for procedure: Right obstructing distal ureteral stone Procedure: After informed consent was verified the patient was brought to the operating placed on the OR table in supine position.? General Anesthesia was administered per protocol.? The patient was placed in lithotomy position, prepped and draped in the usual sterile fashion.? Safety pause time-out and side of surgery confirmed.? Antibiotics confirmed. 2% lidocaine jelly 10 mL was passed transurethrally. A 22 Bangladeshi cystoscope was inserted transurethrally. The bladder was visualized.? Both ureteric orifices were dependent due to mild cystocele. An open-ended ureteral catheter was passed into the right ureteral orifice and a retrograde examination was performed. There was a filling defect in the right ureter and dilatation of the proximal ureter. A guidewire was passed through the ureteral catheter into the kidney. The balloon dilator size 15 fr was passed over the guide -wire the balloon was inflated to 6 mmHg and the intramural ureter was dilated for 45 seconds. The balloon was deflated and removed. After removing the balloon dilator a 2nd guidewire was then passed into the kidney to use as a safety. The cystoscope was removed, leaving both guidewires in place. One guidewire was used as the safety and was attached to the draping. The semi rigid ureteroscope was passed over one of the guidewires to the level of the stone in the ureter. One guidewire was then removed. Laser lithotripsy of the stone was done using the 365 fiber with a settings 0.8 joules by 6 hertz. There was good fragmentation of the stone. The 0 degree basket was passed through the ureteroscope, to remove stone fragments to send for analysis. The ureteroscope was removed. The cystoscope was passed over the safety guidewire. A? 6 Bangladeshi by multi length cm stent was placed into the ureter and renal pelvis under a combination of fluoroscopy and direct visualization. The string was left attached to the ureteral stent to facilitate removal in a few days. The bladder was emptied.? The rigid cystoscope was removed. ? The patient tolerated the procedure well and was brought to the recovery room in stable condition. Complications: None Drains: Ureteral stent as dictated above
--- NOTE | 2022-09-07 18:29 | P.DS_ITS ---
DS: Providers Provider Date of Service: 09/07/22 Date of discharge: 09/07/22 Primary care physician: Dominic Rodrigues MD Admitting clinician: Annette Yeh Attending physician on admission: Annette Yeh Attending physician on discharge: Annette Yeh Discharging clinician: Annette Yeh DS: Diagnosis Discharge Diagnosis (1) Ureteral calculus, right: Status: Acute (2) Bilateral kidney stones: Status: Acute DS: Summary Hospital Course Hospital Course: The patient was seen in the emergency room due to right flank plain she underwent right ureteroscopy laser lithotripsy and stent placement in the operating room. Status at Discharge Overall status at discharge: patient is back to baseline Time Spent with Patient Time attestation: Total time managing care of this patient today ____ minutes. Discharge coordination time: Less than 30 minutes Quality: Safe Use of Opioids Does Pt have an Active Cancer Diagnosis on the Problem List?: No Quality: Stroke Does the patient have a stroke diagnosis?: No Physical Exam Vital Signs: Vital Signs: Last Vital Signs Temp 97.3 F 09/07/22 18:22 Pulse 90 09/07/22 18:27 Resp 16 09/07/22 18:27 BP 144/69 H 09/07/22 18:27 Pulse Ox 99 09/07/22 18:27 O2 Del Method Nasal Cannula 09/07/22 18:27 O2 Flow Rate 2 09/07/22 18:27 BMI result Body Mass Index 32.6 DS: Data Data Completed and Pending Pending studies at discharge: Pending at discharge 09/07/22 18:23 Surgical [PTH] Routine Labs on day of discharge: Laboratory Results - last 24 hr 09/07/22 09/07/22 09/07/22 01:26 01:26 01:26 WBC 7.5 RBC 4.52 Hgb 7.2 L Hct 25.4 L MCV 56.2 L MCH 15.9 L MCHC 28.3 L RDW 20.7 H Plt Count 445 H MPV 8.6 L Immature Gran % (Auto) 0.3 Neut % (Auto) 65.8 Lymph % (Auto) 26.1 [place] % (Auto) 6.6 Eos % (Auto) 0.9 Baso % (Auto) 0.3 Lymph # (Auto) 2.0 [place] # (Auto) 0.5 Eos # (Auto) 0.1 Baso # (Auto) 0.0 Abs Immat Gran (auto) 0.02 Absolute Neuts (auto) 4.9 Absolute Nucleated RBC 0.000 Nucleated RBC % (auto) 0.0 Sodium 134 L Potassium 3.9 Chloride 102 Carbon Dioxide 21 L Anion Gap 15 BUN 14 Creatinine 1.28 Estim Creat Clear Calc 65.1 Estimated GFR 47 POC Glucose Random Glucose 131 H Calcium 9.4 Total Bilirubin 0.3 Direct Bilirubin 0.1 AST 180 H ALT 304 H Alkaline Phosphatase 236 H Total Protein 7.0 Albumin 4.2 Lipase 26 Urine Color Yellow Urine Appearance Clear Urine pH 6.0 Ur Specific [place] <= 1.005 Urine Protein Negative Urine Glucose (UA) Negative Urine Ketones Negative Urine Blood Trace H Urine Nitrite Negative Ur Leukocyte Esterase Trace H Urine RBC 0-2 Urine WBC 6-10 H Ur Squamous Epith Cells 0-2 Urine Bacteria None Seen Hyaline Casts 0-2 Urine Test 09/07/22 09/07/22 01:26 15:32 WBC RBC Hgb Hct MCV MCH MCHC RDW Plt Count MPV Immature Gran % (Auto) Neut % (Auto) Lymph % (Auto) [place] % (Auto) Eos % (Auto) Baso % (Auto) Lymph # (Auto) [place] # (Auto) Eos # (Auto) Baso # (Auto) Abs Immat Gran (auto) Absolute Neuts (auto) Absolute Nucleated RBC Nucleated RBC % (auto) Sodium Potassium Chloride Carbon Dioxide Anion Gap BUN Creatinine Estim Creat Clear Calc Estimated GFR POC Glucose 103 Random Glucose Calcium Total Bilirubin Direct Bilirubin AST ALT Alkaline Phosphatase Total Protein Albumin Lipase Urine Color Urine Appearance Urine pH Ur Specific [place] Urine Protein Urine Glucose (UA) Urine Ketones Urine Blood Urine Nitrite Ur Leukocyte Esterase Urine RBC Urine WBC Ur Squamous Epith Cells Urine Bacteria Hyaline Casts Urine Test NEGATIVE Discharge Plan Discharge Patient Disposition: Home, Self-Care Referrals: Dominic Rodrigues MD [Primary Care Provider] - 1 Week Discharge Medications: No Action ferrous sulfate 325 mg (65 mg iron) tablet 325 mg PO DAILY Qty: 30 8RF Rx Instructions: Take with 500m g Vitamin C, do not take with milk products. lisinopril 10 mg tablet 10 mg PO DAILY Ozempic 0.25 mg or 0.5 mg (2 mg/3 mL) pen injector 0.5 mg subcut SA tamsulosin 0.4 mg capsule 0.4 mg PO DAILY Qty: 7 0RF hydromorphone 2 mg tablet 2 mg PO Q6H PRN (Reason: pain) Qty: 8 0RF Rx Instructions: Partial Fill upon patient request. Bariatric Multivitamins 45 mg iron- 800 mcg-120 mcg capsule 1 cap PO DAILY hydrochlorothiazide 25 mg tablet 12.5 mg PO DAILY pantoprazole 40 mg tablet,delayed release (DR/EC) 40 mg PO DAILY Qty: 90 3RF cholecalciferol (vitamin D3) 50 mcg (2,000 unit) capsule 50 mcg PO DAILY Qty: 90 3RF ondansetron 4 mg tablet,disintegrating 4 mg PO Q8H PRN (Reason: nausea and vomiting) Qty: 30 1RF sucralfate 100 mg/mL suspension 10 ml PO QID Discharge Orders: Discharge Order (Routine); Ordered 09/07/22 Ordered By: Annette Yeh Diet: Advance to usual diet Activity on Discharge: As tolerated Activity Restrictions/Additional Instructions: Follow-up with Dr. Mccollum's nurse for stent removal, the office will call with appointment
[2022-09-07] MEDS: Acetaminophen 325 MG TABLET 975 MG PO (18:51)
[2022-09-07] MEDS: Phenazopyridine HCL 100 MG TABLET PO (18:55)
[2022-09-15 16:18] LABS: Stone Source RIGHT URETERAL STONE
== END 2022-09-07 19:33 | disposition home or self-care (01) ==
LOC: HO.ED 13:28 → HO.SSS 14:46
PROVIDERS: Urology; Emergency Provider Emergency Medicine; PCP Internal Medicine; Visit Provider Pediatrics Pediatric Gastroenterology
PROC: (CPT 52356; principal; 2022-09-07 14:20)
DX: N13.2 Hydronephrosis with renal and ureteral calculous obstruction (principal); D64.9 Anemia, unspecified; I10 Essential (primary) hypertension; E11.9 Type 2 diabetes mellitus without complications; Z79.84 Long term (current) use of oral hypoglycemic drugs; Z79.899 Other long term (current) drug therapy; Z88.8 Allergy status to other drugs, medicaments and biological substances; Z98.84 Bariatric surgery status; Z90.49 Acquired absence of other specified parts of digestive tract
CPT/HCPCS: 52356; 36415; 80048; 80076; 81001; 81025; 82365; 82947; 83690; 85025; 87086; 88300; 99285; C1726; C1758; C1769; C2617; J0690; J1100; J1170; J1885; J2250; J2405; J3010; Q9967

== ENCOUNTER 2022-09-14 10:20 | Day surgery (SDC) | payer OTHER, SELFPAY ==
[2022-09-08 12:33] VITALS: BMI 34.1
--- NOTE | 2022-09-10 09:55 | HO.ANESPROP2 ---
Documented by User: Taina Almodovar NP 09/10/22 09:56 HPI - Anesthesia Eval Consult details Narrative: 37yo F for Upper Endoscopy s/p cysto,etc 09/08/22 with GA-LMA 4 PMFSH Active Problems Active Problems: All Active Problems (Updated 09/08/22 @ 12:36 by Aziza Sparrow RN) (Acute) Obesity (Acute) Abdominal pain (Acute) Anastomotic ulcer S/P gastric bypass (Acute) Bilateral kidney stones (Acute) Hydronephrosis concurrent with and due to calculi of kidney and ureter (Acute) History of Rogelio-en-Y gastric bypass (Acute) Past Medical History Medical History Anemia Diabetes HTN (hypertension) Hx of gastric ulcer Family History Family History Father Heart disease HTN (hypertension) Hyperlipidemia Mother COPD (chronic obstructive pulmonary disease) Diabetes Obesity Fibromyalgia HTN (hypertension) Hyperlipidemia Son No problems noted. Daughter No problems noted. Family history of problems with anesthesia: No Surgical History Surgical History (Updated 09/14/22 @ 12:30 by Corina Davila MD) History of Rogelio-en-Y gastric bypass Hx laparoscopic cholecystectomy Hx of section Hx of cystoscopy Hx of esophagogastroduodenoscopy Hx of tonsillectomy Hx of tubal ligation S/P eye surgery History of Problems with Anesthesia: No Social History Social History Alcohol intake: never Patient Tobacco Use Status: Never used Tobacco Second Hand Smoke Exposure: No Are you DNR?: No Advance Directives: No Advance Directives Information Provided: Yes Advance Directives on File: No Meds Allergies Allergy/AdvReac Type Severity Reaction Status Date / Time insulin glargine AdvReac Intermediate JUSTINA KRISHNAN Verified 09/14/22 10:54 [From LANTUS U-100 INSULIN] ING Home Medications Medication Instructions Recorded Confirmed Last Taken Type kxrtzwzi-bkzoqdzi-bmer 45 mg-folic 1 cap PO DAILY 08/06/20 09/08/22 09/06/22 History acid 800 mcg-vit K 120 mcg capsule (Bariatric Multivitamins) hydrochlorothiazide 25 mg tablet 12.5 mg PO DAILY 08/12/22 09/08/22 09/06/22 History 12.5 lisinopril 10 mg tablet 10 mg PO DAILY 08/17/22 09/08/22 09/06/22 History 10 semaglutide 0.25 mg or 0.5 mg (2 0.5 mg subcut SA 08/17/22 09/08/22 09/06/22 History mg/3 mL) subcutaneous pen injector (Ozempic) sucralfate 100 mg/mL oral 10 ml PO QID 08/31/22 09/08/22 09/06/22 History suspension Exam Exam Date and Time: September 10, 2022 0955 Height,Weight and Vital Signs: Height 5 ft 4 in Weight 90.083 kg Pertinent Lab Results Pertinent Lab Results: Laboratory Tests 09/07/22 09/07/22 01:26 01:26 WBC 7.5 Hgb 7.2 L Hct 25.4 L Plt Count 445 H Sodium 134 L Potassium 3.9 Chloride 102 Carbon Dioxide 21 L BUN 14 Creatinine 1.28 Assessment and Plan Assessment Anesthesia Assessment: Chart Reviewed Final Anesthetic Review Family History of Problems with Anesthesia: No History of Problems with Anesthesia: No Documented by User: Corina Davila MD 09/14/22 12:42 [facility] Active Problems Active Problems: All Active Problems (Updated 09/14/22 @ 12:15 by Corina Davila MD) Obesity (Acute) Abdominal pain (Acute) Anastomotic ulcer S/P gastric bypass (Acute). S/p EGD . For re-check post initiation of therapy Bilateral kidney stones (Acute) Hydronephrosis concurrent with and due to calculi of kidney and ureter (Acute) History of Rogelio-en-Y gastric bypass (Acute) 08/2019 Denies MATT HTN Diabetes Past Medical History Medical History Anemia Diabetes HTN (hypertension) Hx of gastric ulcer Family History Family History Father Heart disease HTN (hypertension) Hyperlipidemia Mother COPD (chronic obstructive pulmonary disease) Diabetes Obesity Fibromyalgia HTN (hypertension) Hyperlipidemia Son No problems noted. Daughter No problems noted. Surgical History Surgical History (Updated 09/14/22 @ 12:30 by Corina Davila MD) History of Rogelio-en-Y gastric bypass Hx laparoscopic cholecystectomy Hx of section Hx of cystoscopy Hx of esophagogastroduodenoscopy Hx of tonsillectomy Hx of tubal ligation S/P eye surgery Social History Social History Alcohol intake: never Patient Tobacco Use Status: Never used Tobacco Second Hand Smoke Exposure: No Are you DNR?: No Advance Directives: No Advance Directives Information Provided: Yes Advance Directives on File: No Meds Allergies Allergy/AdvReac Type Severity Reaction Status Date / Time insulin glargine AdvReac Intermediate JUSTINA KRISHNAN Verified 09/14/22 10:54 [From LANTUS U-100 INSULIN] ING Home Medications Medication Instructions Recorded Confirmed Last Taken Type afljxshf-qajsmxae-kzpk 45 mg-folic 1 cap PO DAILY 08/06/20 09/08/22 09/06/22 History acid 800 mcg-vit K 120 mcg capsule (Bariatric Multivitamins) hydrochlorothiazide 25 mg tablet 12.5 mg PO DAILY 08/12/22 09/08/22 09/06/22 History 12.5 lisinopril 10 mg tablet 10 mg PO DAILY 08/17/22 09/08/22 09/06/22 History 10 semaglutide 0.25 mg or 0.5 mg (2 0.5 mg subcut SA 08/17/22 09/08/22 09/06/22 History mg/3 mL) subcutaneous pen injector (Ozempic) sucralfate 100 mg/mL oral 10 ml PO QID 08/31/22 09/08/22 09/06/22 History suspension Exam Height,Weight and Vital Signs: Height 5 ft 4 in Weight 90.083 kg Vital Signs Temp Pulse Resp BP Pulse Ox O2 Del Method 09/14/22 10:55 97.8 F 83 15 152/92 H 99 Room Air Pertinent Lab Results Pertinent Lab Results: Laboratory Tests 09/07/22 09/07/22 01:26 01:26 WBC 7.5 Hgb 7.2 L Hct 25.4 L Plt Count 445 H Sodium 134 L Potassium 3.9 Chloride 102 Carbon Dioxide 21 L BUN 14 Creatinine 1.28 Lab Results 09/14/22 09/14/22 Range/Units 10:36 11:00 POC Glucose 101 (60-115) mg/dL COVID-19 (CARMINA) Negative (Negative) COVID-19 Clin Com See Note Airway Mallampati Class: II TM Dist: >3cm Neck ROM: Full Loose/Missing/Broken Teeth: Yes (Permanent bridge bottom front. Broken tooth bottom back left) Heart: RRR Lungs: CTAB Assessment and Plan Assessment Anesthesia Assessment: Anesthesia Plan Discussed Final Anesthetic Review NPO: Yes ASA Class: III Final Preanesthetic Review: No Changes in Pt Med Stat, Meds/Allgs Chart Reviewed, Consent Obtained/Reviewed and Anes Risks/Benef Reviewed Patient Risk: Intermediate Procedure Risk: Low Assessment/Block/Sedation in SS: Assess/Block/Sedation-SS Anesthetic Plan Anesthetic Plan: MAC: Disposition: Standard PACU
--- NOTE | 2022-09-12 10:44 | MHC.SHP ---
Pre-Procedural Eval Section A Date of Service: 09/12/22 The patient is an INPATIENT: No The History & Physical has been completed within 30 days and I have reviewed it.: Yes Section B Chief Complaint: ulcer Relevant Family History (Specify if Yes): No Relevant Social History: None Present Medications: None Medical History: No relevant PMH History of Previous Operations: Relevant previous surgery/procedure and date(s) (Laparoscopic gastric bypass) Allergies: Allergies Allergy/AdvReac Type Severity Reaction Status Date / Time insulin glargine AdvReac Intermediate CAMPBELLANITAJUSTINA Verified 09/08/22 12:19 [From LANTUS U-100 INSULIN] ING Review of Systems Sugical H&P ROS: Negative: Constitution, Cardiovascular, Respiratory, Neurological, Psychiatric, Hem-Onc, Allergic/Immunologic, Gastrointestinal, Genitourinary, Musculoskeletal, Integumentary, Endocrine and Eyes/Ears/Nose/Throat Exam Surgical H&P Exam: Normal: HEENT, Normal: Heart, Normal: Lungs, Normal: Extremities, Normal: Abdomen, Normal: Skin and Normal: Neurological Plan Diagnosis/Plan: Unchanged (EGD to assess status of the anastomotic ulcer. Risks for perforation and bleeding were discussed with patient. She is in agreement with the plan) I have reviewed the history and physical and performed a pertinent physical examination on my patient. No changes have occurred unless specified. Time Spent With Patient Time: Total time managing care of this patient today ____ minutes.
[2022-09-14 10:55] VITALS: BP 152/92; PULSE 83; RESP 15; TEMP 36.6; O2SAT 99
[2022-09-14] MEDS: Lactated Ringers 1,000 ML 80 ML IVCONT (11:07)
[2022-09-14 11:12] LABS: Glucose, Whole Blood 101 mg/dL (60-115)
[2022-09-14 11:14] LABS: COVID-19 Test Negative (Negative); IDNOW Serial# BCCEAD1C
--- NOTE | 2022-09-14 12:53 | PM.OP ---
Brief Operative Note Date of Service: 09/14/22 Pre-op diagnosis: Anastomotic ulcer Post-op diagnosis: same Procedure: PROCEDURE DATE: 09/14/2022 PREOPERATIVE DIAGNOSIS: Healed anastomotic ulcer, s/p gastric bypass POSTOPERATIVE DIAGNOSIS: ?Same as above. Anastomotic ulcer PROCEDURE: Mnbbfezw-lgffmv-fxepiykrrzq with biopsies Surgeon: ?Alexandre Schaefer M.D.. Ph.D. Systems Analyst: ?None ? Anesthesia: IV sedation Estimated blood loss: ?Minimal FINDINGS AND PROCEDURE: ? OPERATIVE INDICATIONS: ?The patient is a 37 year old female known to me who underwent a laparoscopic gastric bypass by me. The patient had an anastomotic ulcer duirng her 2 years ago which was treated elsewhere. Since then has gained 30lbs and presents of recurrent epigastric pain despite continuous use of Omeprazole.?An endoscopy was performed on 08/17/22 which revealed a small anastomotic ulcer. She received appropriate treatment and now present for follow-up endoscopy to assess the status of the ulcer. Based on this information I recommended an upper endoscopy to evaluate the patient's symptoms.? Risks and complications of the surgery were discussed with the patient in advance particularly the possibility of perforation or bleeding that may require surgical intervention. The patient understood the risks and was in agreement with the plan. ? PROCEDURE: After informed consent was obtained by the patient, the patient was ?transferred to the Operating Room and was placed in the supine position.? After successful induction of IV sedation, a mouth block was placed and the patient was placed in the left lateral decubitus position. An upper endoscopy was performed next, the oropharynx and esophagus appeared within the normal limits. There was no hiatal hernia.? The z-line was smooth. The small pouch was entered, appeared to be of normal size. There was no gastritis and the gastrojejunostomy was patent. There was no anastomotic ulcer. It was completely healed.? At that point the scope was advanced into the proximal small intestine (proximal Rogelio limb) which appeared to be normal as well. The Rogelio limb and the pouch were decompressed and the scope was withdrawn from the patient's mouth. The patient was awaken and was transferred in stable condition to the Recovery Room for further care. I was present and performed all steps of the procedure. There were no residents to assist with this case. Alexandre Schaefer M.D., Ph.D. Surgeon: Mac Schaefer MD Anesthesia: MAC Was an Systems Analyst used for this Procedure?: No Estimated blood loss (mL): 0 IV fluids (mL): 4,000 Urine output (mL): 0 (No Colón to record output) Pathology: none sent Condition: stable Disposition: PACU
[2022-09-14 13:30] VITALS: BP 148/96; PULSE 105; RESP 16; TEMP 36.6; O2SAT 99
[2022-09-14 13:45] VITALS: BP 127/75; PULSE 93; RESP 16; TEMP 36.6; O2SAT 97
== END 2022-09-14 14:27 | disposition home or self-care (01) ==
PROVIDERS: PCP Internal Medicine; Visit Provider Surgery
PROC: 0DJ08ZZ Inspection of Upper Intestinal Tract, Via Natural or Artificial Opening Endoscopic (ICD-10-PCS; CPT 43235; principal; 2022-09-14 12:50)
DX: K28.9 Gastrojejunal ulcer, unspecified as acute or chronic, without hemorrhage or perforation (principal); R11.2 Nausea with vomiting, unspecified; Z98.84 Bariatric surgery status; Z87.11 Personal history of peptic ulcer disease; D64.9 Anemia, unspecified; I10 Essential (primary) hypertension; E11.9 Type 2 diabetes mellitus without complications; Z79.85 Long-term (current) use of injectable non-insulin antidiabetic drugs; Z79.899 Other long term (current) drug therapy; Z88.8 Allergy status to other drugs, medicaments and biological substances; Z90.49 Acquired absence of other specified parts of digestive tract; Z20.822 Contact with and (suspected) exposure to COVID-19
CPT/HCPCS: 43235; 82947; 87635

== ENCOUNTER → 2022-09-29 11:08 | Outpatient (BNV) | payer OTHER, SELFPAY | PROVIDERS: PCP Internal Medicine; Visit Provider Internal Medicine | DX: D50.0 Iron deficiency anemia secondary to blood loss (chronic) (principal); Z98.84 Bariatric surgery status | CPT/HCPCS: 99204; 99214 ==

== ENCOUNTER 2022-10-06 07:18 | Outpatient (REF) | payer OTHER, SELFPAY | END 2022-10-06 07:19 | disposition home or self-care (01) | LOC: HO.MDS 07:18 | PROVIDERS: Visit Provider Internal Medicine | DX: D50.9 Iron deficiency anemia, unspecified (principal) | CPT/HCPCS: 96365; 96366; J1200; J1750 ==

== ENCOUNTER 2023-03-16 14:51 | Outpatient (REF) | payer OTHER, SELFPAY ==
--- NOTE | ~2023-03-16 | XR_ITS ---
EXAMINATION: XR ABDOMEN KUB CLINICAL INDICATION: Nephrolithiasis COMPARISON: CT abdomen from 07/06/2022 TECHNIQUE: AP view of the abdomen. FINDINGS: There are postsurgical changes in the left side of the abdomen with surgical clips and in the right upper quadrant. No calcifications seen to suggest nephrolithiasis. XR/XR KUB IMPRESSION: No evidence of nephrolithiasis
== END 2023-03-16 14:52 | disposition home or self-care (01) ==
LOC: HO.XRAY 14:51
PROVIDERS: PCP Internal Medicine; Visit Provider Urology
DX: N20.0 Calculus of kidney (principal)
CPT/HCPCS: 74018

== ENCOUNTER 2023-05-18 15:22 | Outpatient (AMB) | payer OTHER, SELFPAY ==
--- NOTE | 2023-05-18 15:31 | A.OFFVIS_ITS ---
Intake Intake Visit Reasons: f/u Kidney Stones Intake Note: Patient presents today for a follow-up on: Kidney Stones Meds- Tamsulosin Allergies to Antibiotic- No Known Allergies Blood Thinner- None Butcher Assistant Required: No Accompanied by: Self / Same As Patient Allergies insulin glargine [From LANTUS U-100 INSULIN] Adverse Reaction (Intermediate, Verified 05/18/23 15:38) WELTS,BRUISING Medication List - Last Reconciled 05/18/23 by Annette Yeh MD cholecalciferol (vitamin D3) 50 mcg PO DAILY ferrous sulfate 325 mg PO DAILY hydrochlorothiazide 12.5 mg PO DAILY lisinopril 10 mg PO DAILY ddwurmgkzdth-rom-dedt-FA-vit K 45 mg iron- 800 mcg-120 mcg (Bariatric Multivitamins) 1 cap PO DAILY ondansetron 4 mg PO Q8H PRN pantoprazole 40 mg PO DAILY semaglutide (Ozempic) 0.5 mg subcut SA sucralfate 10 mL PO QID HPI HPI Comments History of Present Illness Details Follow-up Kidney stones Jenni was treated on August 2022 due to obstructing ureteral stone she is status post ureteroscopy and stent the stent was removed Comorbidity history of bariatric surgery on a high protein diet on protein shakes daily. She presents today in follow-up in states that she was having some discomfort few weeks ago clinic KUB was done which was within normal limits At this time she is asymptomatic. In review of August CT scan besides the obstructing stone in the ureter there were bilateral small stones up to 2 mm Review of chart: 09/06/22-- The patient was in the ED on 09/05/22 for right side flank pain. The patent has a history of gastric bypass and developed right flank pain and went to emergency room yesterday. She denies having history of calculi. States having right side flank pain since 2 days. CTAP results reviewed?09/05/22--There were bilateral renal calculi noted 2 mm that are not obstructing and 7 mm right ureteral stone with moderate hydronephrosis. She was prescribed with hydromorphone 2 mg and tamsulosin 0.4 mg. I discussed right Ureteroscopy with laser lithotripsy, stent placement procedure. 05/18/23 Plan: discussed metabolic piter p including 24 hour urine PFSH Medical History Anemia Hx of gastric ulcer Diabetes HTN (hypertension) Surgical History Hx of cystoscopy Hx of tubal ligation Hx of esophagogastroduodenoscopy History of Rogelio-en-Y gastric bypass Hx laparoscopic cholecystectomy S/P eye surgery Hx of tonsillectomy Hx of section Family History Father Heart disease HTN (hypertension) Hyperlipidemia Mother COPD (chronic obstructive pulmonary disease) Diabetes Obesity Fibromyalgia HTN (hypertension) Hyperlipidemia Son No problems noted. Daughter No problems noted. Social History Household Members: Spouse and Children Housing: House Alcohol intake: never Patient Tobacco Use Status: Never used Tobacco Second Hand Smoke Exposure: No service: No Current occupational status: employed Review of Systems Const All systems reviewed & are unremarkable except as noted in HPI and below Reports no additional complaints Eyes Reports no additional complaints ENT Reports no additional complaints Card Denies dyspnea Resp Denies cough and Denies dyspnea GI Reports no additional complaints Reports no additional complaints Musc Reports no additional complaints Skin/Breast Denies rash and Denies unusual bruising Neuro Reports no additional complaints Psych Reports no additional complaints Endo Reports no additional complaints Jose/Lymph Reports no additional complaints Aller/Immun Reports no additional complaints Results AMB Urinalysis, Automated UA Leukoctes 0 Shaila/uL Last Edit by Pamela Montez CMA on 05/18/23 15 :46 UA Nitrite Negative Last Edit by Pamela Montez CMA on 05/18/23 15: 46 UA Urobilinogen 0.2 mg/dL Last Edit by Pamela Montez CMA on 4 15:46 UA Protein 15 mg/dL Last Edit by Pamela Montez [facility] on 05/18/23 15:4 6 UA pH 6.0 Last Edit by Pamela Montez [facility] on 05/18/23 15:46 UA Blood 80 Calvin/uL Last Edit by Pamela Montez, [facility] on 05/18/23 15:46 UA Specific [place] 1.030 Last Edit by Pamela Montez [facility] on 15:46 UA Ketone Negative Last Edit by Pamela Montez [facility] on 05/18/23 15:4 6 UA Bilirubin 0 mg/dL Last Edit by Pamela Montez [facility] on 05/18/23 15: 46 UA Glucose 0 mg/dL Last Edit by Pamela Montez [facility] on 05/18/23 15:46 Results Reviewed Results Reviewed: Laboratory Last Values Urine pH (Auto) 6.0 05/18/23 15:43 Specific [place] (Auto) 1.030 05/18/23 15:43 Urine Protein (Auto) 15 mg/dL 05/18/23 15:43 Glucose (UA)(Auto) 0 mg/dL 05/18/23 15:43 Urine Ketones (Auto) Negative 05/18/23 15:43 Urine Blood (Auto) 80 Calvin/uL 05/18/23 15:43 Urine Nitrite (Auto) Negative 05/18/23 15:43 Urine Bilirubin (Auto) 0 mg/dL 05/18/23 15:43 Urine Urobilinogen (Auto) 0.2 mg/dL 05/18/23 15:43 Leukocyte Esterase (Auto) 0 Shaila/uL 05/18/23 15:43 Assessment & Plan Assessment & Plan (1) Bilateral kidney stones: Code(s): N20.0 - Calculus of kidney Plan discussed metabolic workup including 24 hour urine Orders: Orders AMB Urinalysis Automated 05/18/23 R33.9 - Retention of urine, unspecified Medications: Discontinued tamsulosin Discontinued Reason: Doctor's Order 0.4 mg PO DAILY 7 caps 0RF Patient Instructions: The patient had an opportunity to ask questions regarding treatment plan. All questions were answered. Imaging, Laboratory studies and physical exam results were discussed and reviewed in detail. No major barriers to understanding were identified. The patient expressed understanding and agreement with the above treatment plan. The patient is aware they should contact our office by phone for worsening of their current condition or the appearance of new symptoms. Compliance is encouraged with any medications and followup testing that is ordered. It is a privilege to be allowed the opportunity to participate in the urologic care of your patient. If you have any questions or concerns regarding treatment for the above conditions please do not hesitate to contact me. The office telephone contact is [phone]. This note is constructed in part using voice recognition software. While every effort has been made to ensure accuracy continuous mining machine operator errors may have been included. Yours sincerely, Annette Yeh MD Coding Level of Care Code Est Pt Level 3 (05462) Diagnoses Bilateral kidney stones N20.0
== END 2023-05-18 16:08 | disposition home or self-care (01) ==
PROVIDERS: PCP Internal Medicine; Visit Provider Urology
DX: N20.0 Calculus of kidney (principal)
CPT/HCPCS: 99213

== ENCOUNTER → 2023-05-18 15:22 | Outpatient (BNVA) | payer OTHER, SELFPAY | PROVIDERS: PCP Internal Medicine; Visit Provider Urology | DX: N20.0 Calculus of kidney (principal) | CPT/HCPCS: 81003 ==

== ENCOUNTER 2024-02-08 05:59 | Outpatient (REF) | payer OTHER, SELFPAY ==
--- NOTE | ~2024-02-08 | XR_ITS ---
EXAMINATION: XR CHEST CLINICAL INFORMATION: Cough for weeks. COMPARISON: Chest From 08/31/2019. TECHNIQUE: 2 views of the chest were obtained (PA and lateral). FINDINGS: The lungs are well expanded. No evidence of focal consolidation, pleural effusion, pulmonary edema, or pneumothorax. The cardiomediastinal silhouette is within normal limits. No acute osseous abnormalities. Surgical clips in the epigastric region. XR/XR chest 2V IMPRESSION: No radiographically evident acute pulmonary abnormalities. Electronically signed by: Ozzy Johnson DO 02/08/2024 07:41 PM EDT
== END 2024-02-08 06:00 | disposition home or self-care (01) ==
LOC: HO.XRAY 05:59
PROVIDERS: PCP Internal Medicine; Visit Provider Physician Assistant
DX: J06.9 Acute upper respiratory infection, unspecified (principal)
CPT/HCPCS: 71046

== ENCOUNTER 2024-02-08 09:50 | Outpatient (AMB) | payer OTHER, SELFPAY ==
--- NOTE | 2024-02-08 09:25 | MHC.OFFVISWM ---
VS Expanded 02/08/24 09:33 Height 5 ft 3 in Weight 161 lb BMI 28.5 Intake Visit Reasons: TELEPHONE PO GBP 08/30/2019 Allergies insulin glargine [From LANTUS U-100 INSULIN] Adverse Reaction (Intermediate, Verified 07/01/23 09:49) WELTS,BRUISING Medication List - Last Reconciled 02/08/24 by SHANNAN Butt cholecalciferol (vitamin D3) 50 mcg PO DAILY ferrous sulfate 325 mg PO DAILY hydrochlorothiazide 12.5 mg PO DAILY lisinopril 10 mg PO DAILY rrrooumzygjd-ctl-ukgr-FA-vit K 45 mg iron- 800 mcg-120 mcg (Bariatric Multivitamins) 1 cap PO DAILY pantoprazole 40 mg PO DAILY semaglutide (Ozempic) 0.5 mg subcut SA HPI Comments Details: Pt is 39 year old female s/p LRYGB 08/30/2019, with history of recurrent anastomotic ulcers. Last seen in 08/2022 at which time she had endoscopy showing healing of an anastomotic ulcer noted one month prior. Since last OV, weight change of -37lbs. Had gotten down to 149 but recently unable to exercise due to 7 week respiratory infection, her mom also unexpectedly, difficulty with exercise. Trying to follow the meal plan but sometimes had trouble getting enough protein. Usually does 2 shakes a day, small meal for lunch, shake or bar for dinner. Gets 100+g protein per day typically. Usually does 4x/week at gym, 45 min elliptical but difficulty with breathing, started on a Z-Pac. Continues on PPI daily. No reflux. No vomiting, no nausea, no black stools, no abdominal pain. Has a little bit of coffee per day with protein shake. Nonsmoker, no NSAIDs. Iron levels are low- had labs done yesterday. Increasing feelings of cold. Takes vit C/iron, cristobal MVI. Followed for anemia by hematology. Had iron dextran infusion last year which per pt was supposed to last for about a year. Pt does not have any symptoms of abdominal pain. Able to tolerate PO intake. Has heavy menstural cycles. Takes docusate daily for constipation. [facility] Medical History Anemia Hx of gastric ulcer Diabetes HTN (hypertension) Surgical History Hx of cystoscopy Hx of tubal ligation Hx of esophagogastroduodenoscopy History of Rogelio-en-Y gastric bypass Hx laparoscopic cholecystectomy S/P eye surgery Hx of tonsillectomy Hx of section Family History Father Heart disease HTN (hypertension) Hyperlipidemia Mother COPD (chronic obstructive pulmonary disease) Diabetes Obesity Fibromyalgia HTN (hypertension) Hyperlipidemia Son No problems noted. Daughter No problems noted. Social History Household Members: Spouse and Children Housing: House Alcohol intake: never Patient Tobacco Use Status: Never used Tobacco Second Hand Smoke Exposure: No service: No Current occupational status: employed Telehealth Telehealth Telehealth Platform: Telephone Location of provider rendering services: other Location of patient: other Patient Identification confirmed using: Name, : Yes Telehealth method: voice only Patient verbally consented to treatment: Yes Patient verbally consented to billing insurance company: Yes Patient informed of any privacy concerns related to visit: Yes Minutes spent on Phone/Video with Pt.: 16 Assessment & Plan Assessment & Plan (1) Anastomotic ulcer S/P gastric bypass: Code(s): T85.898A - Other specified complication of other internal prosthetic devices, implants and grafts, initial encounter; K28.9 - Gastrojejunal ulcer, unspecified as acute or chronic, without hemorrhage or perforation Category: Medical (2) History of Rogelio-en-Y gastric bypass: Comment: August 2019 Code(s): Z98.84 - Bariatric surgery status Category: Surgical (3) Iron deficiency anemia: Code(s): D50.9 - Iron deficiency anemia, unspecified Category: Medical Plan Pt shared her recent lab results from [place]- H/H 10.5/34.5, ferritin 6, TIBC 558. She has no abdominal/GI symptoms and has been consistent with PPI, generally follows meal plan. I think it is unlikely that her ulcer has recurred at this time. She will let us know if she develops any abdominal pain or symptoms similar to when she had ulcer in the past, or if H/H continues to drop. Otherwise continue PPI and high protein meal plan. Pt plans to resume normal exercise routine as she recovers from recent illness. Can follow up in 1 year or PRN. I spent a total of 30 minutes reviewing/updating records, examining the patient and counseling the patient on weight management as detailed above.
[2024-02-08 09:33] VITALS: BMI 28.5
== END 2024-02-08 09:58 | disposition home or self-care (01) ==
LOC: HO.HBS 09:50
PROVIDERS: PCP Internal Medicine; Visit Provider Physician Assistant Surgical
DX: T85.898A Other specified complication of other internal prosthetic devices, implants and grafts, initial encounter (principal); K28.9 Gastrojejunal ulcer, unspecified as acute or chronic, without hemorrhage or perforation; Z98.84 Bariatric surgery status; D50.9 Iron deficiency anemia, unspecified
CPT/HCPCS: 99214

== ENCOUNTER 2025-03-18 03:10 | Emergency (ER) | payer OTHER, SELFPAY ==
[2025-03-18 03:19] VITALS: BP 135/80; PULSE 79; RESP 16; TEMP 36.9; O2SAT 100; BMI 31.9
--- OUTSIDE RECORDS SUMMARY | 2025-03-18 03:37 | XMS_ITS | Encounter Summary ---
Author Organization [facility] Address [address] [place] [address] Care Team Providers Care Chemical Handler Name Role Phone Dominic Rodrigues MD Primary Care Provider Encounter Details Date Type Department Care Team ([facility] st Contact Info) Description 03/12/2025 Results Follow-Up Adult Medicine [facility] [address], [place] [phone] Skye Wadsworth PA [address] [place], [place] Social History Tobacco Use Types Packs/Day Years Used Date Smoking Tobacco: Never Smokeless Tobacco: Never Alcohol Use Standard Drinks/Week Comments Yes 0 (1 standard drink = 0.6 oz pur e alcohol) Housing Instability Answer Date Recorde d Are you worried that in the next 2 months you may not have stable housing? No 09/06/2024 Food Access & Nutrition Answer Date Rec orded Do you have access to a vari ety of food including fruits and vegetables? Yes 09/06/2024 Access to Healthcare Answer Date Record ed Within the last 3 months, ho w many times did you visit the emergency department for your medical care? 0 09/06/2024 Health Literacy Answer Date Recorded How often do you need to hav e someone help you when you read instructions, pamphlets, or other written material from your doctor or pharmacy? Never 09/06/2024 Caregiver: How often do you need to have someone help you when you read instructions, pamphlets, or other written material from your doctor or pharmacy? Not on file 09/06/2024 Financial Risk Answer Date Recorded How hard is it for you to pa y for the very basics like food, housing, medical care, and air conditioning / heating? Not very hard 09/06/2024 Transportation Answer Date Recorded Has the lack of transportati on kept you from meetings, work, or from getting things needed for daily living? No Has the lack of transportati on kept you from medical appointments or from getting medications? No 09/06/2024 Social Isolation Answer Date Recorded How often do you feel lonely or isolated from th ose around you? Never 09/06/2024 Food Risk Answer Date Recorded Within the past 12 months we worried whether our food would run out before we got money to buy more. Never true 09/06/2024 Within the past 12 months th e food we bought just didn't last and we didn't have money to get more. Never true 09/06/2024 Dependent Care Answer Date Recorded Do you need help finding or paying for care for your loved ones. For example, child advocate or elderly care for an older adult? No 09/06/2024 Education Answer Date Recorded Do you think completing more education or training, like finishing a GED, going to college, or learning a trade, would be helpful for you? No 09/06/2024 Employment and Income Answer Date Recor ded During the last four weeks, have you been actively looking for work? No 09/06/2024 Living Situation Answer Date Recorded What is your living situation? Unrecognized valu e 09/06/2024 Comments No Sex and Gender Information Value Date Recorded Sex Assigned at Not on file Legal Sex Female 9:06 PM EST Gender Identity Not on file Sexual Orientation Not on file documented as of this encounter Ordered Prescriptions Prescription Sig Dispense Quantity Refills Last Filled Start Date End Date ferrous sulfate 325 mg (65 mg iron) EC tablet Take 1 tablet (325 mg total) by mouth 2 (two) times a day with meals. Do not crush, chew, or split. 60 each 5 03/12/2025 documented in this encounter Plan of Treatment Scheduled Orders Name Type Priority Associated Diagnoses Orde r Schedule Iron and TIBC Lab Routine Iron deficiency anemia following bariatric surgery Expected: 06/12/2025, Expires: 03/12/2026 Ferritin Lab Routine Iron deficiency anemia following bariatric surgery Expected: 06/12/2025, Expires: 03/12/2026 CBC and differential Lab Routine Iron deficiency anemia following bariatric surgery Expected: 06/12/2025, Expires: 03/12/2026 documented as of this encounter Results * (ABNORMAL) Ferritin (03/11/2025 4:10 PM EST) Ferritin 5(L) 7 - 271 ng/mL 03/12/2025 10:43 AM EST [facility] Blood Venous blood specimen / Unknown Venipuncture / Unknown 03/11/2025 4:10 PM EST 03/11/2025 4:10 PM EST [facility] BLOOD ORDERABLES Final Resul t Performing Organization Address [facility] de Phone Number [facility] [address] [place] [address], [place] [phone] * (ABNORMAL) Iron and TIBC (03/11/2025 4:10 PM EST) Iron 18(L) 40 - 150 mcg/dL 03/12/2025 10:37 AM EST [facility] TIBC 519(H) 250 - 450 mcg/dL 03/12/2025 10:37 AM EST [facility] Iron Saturation 3(L) 15 - 50 % 10:37 AM [facility] Blood Venous blood specimen / Unknown Venipuncture / Unknown 03/11/2025 4:10 PM EST 03/11/2025 4:10 PM EST [facility] BLOOD ORDERABLES Final Resul t Performing Organization Address [facility] Co de Phone Number [facility] [address] [place] [address], [place] [phone] documented in this encounter Visit Diagnoses Diagnosis Iron deficiency anemia following bariatric surgery- Primary documented in this encounter Discontinued Medications Medication Sig Discontinue Reason Start Date End Da te ferrous sulfate 325 mg (65 mg iron) EC tablet Take 1 tablet (325 mg total) by mouth 1 (one) time each day. Dose adjustment 03/12/2025 documented as of this encounter Additional Health Concerns Assessment Noted Time PHQ-9 Depression Total Score: 0 09/07/19 25 2:09 PM EDT documented as of this encounter Care Teams Chemical Handler Relationship Specialty Start Date End Date Dominic Rodrigues MD [address] [place] [address] PCP - General 08/27/22 documented as of this encounter
--- OUTSIDE RECORDS SUMMARY | 2025-03-18 03:37 | XMS_ITS | Clinical Summary ---
Author Organization [facility] [address] [place] [address] [address] [place] [address] Phone Care Team Providers Care Senior Litigation Paralegal Name Role Phone Dominic Rodrigues MD Primary Care Provider Allergies Active Allergy Reactions Criticality Noted Date Comments Lantuss-Forte Flushing 03/17/2017 Medications albuterol HFA (PROAIR HFA ; PROVENTIL HFA ; VENTOLIN HFA) 90 mcg/actuation inhaler Inhale 2 puffs by mouth every 4 (four) hours if needed for wheezing. Cough 4 Active multivitamin-mi m-arfi-KY-vit K (Bariatric Multivitamins) 45 mg iron- 800 mcg-120 mcg capsule Take 45 mg by mouth 1 (one) time each day. Active mv-mn/iron/foli c acid/herb 190 (VITAMIN D3 COMPLETE ORAL) Take 2,000 mg by mouth 1 (one) time each day. Active pantoprazole (PROTONIX) 40 mg EC tablet Take 1 tablet (40 mg total) by mouth 1 (one) time each day. 4 Active hydroCHLOROthia zide (HYDRODIURIL) 25 mg tablet TAKE ONE (1) TABLET BY MOUTH EVERY DAY 90 each 1 5 Active lisinopriL (PRINIVIL,ZESTR IL) 10 mg tablet TAKE ONE (1) TABLET BY MOUTH EVERY DAY 90 tablet 1 5 Active FLUoxetine (PROzac) 20 mg capsule Take 1 capsule (20 mg total) by mouth 1 (one) time each day. 90 each 1 5 Active traZODone (DESYREL) 50 mg tablet Take 1 tablet (50 mg total) by mouth at bedtime. 30 tablet 1 5 Active semaglutide (Ozempic) 0.25 mg or 0.5 mg (2 mg/3 mL) injection pen Inject 0.5 mg under the skin every 7 (seven) days. 3 mL 5 Active ferrous sulfate 325 mg (65 mg iron) EC tablet Take 1 tablet (325 mg total) by mouth 2 (two) times a day with meals. Do not crush, chew, or split. 60 each 5 5 Active ferrous sulfate 325 mg (65 mg iron) EC tablet Take 1 tablet (325 mg total) by mouth 1 (one) time each day. 03/12/20 Discontinu ed(Dose adjustment ) LORazepam (ATIVAN) 0.5 mg tablet Take 1 tablet (0.5 mg total) by mouth every 6 (six) hours if needed for anxiety. for up to 7 days. 4 03/11/20 Discontinu ed(Therapy completed) traZODone (DESYREL) 50 mg tablet Take 1 tablet (50 mg total) by mouth at bedtime. 4 03/11/20 Discontinu ed(Reorder ) FLUoxetine (PROzac) 10 mg capsule TAKE ONE (1) CAPSULE BY MOUTH EVERY DAY 30 capsule 4 5 03/11/20 Discontinu ed(Dose adjustment ) Ozempic 0.25 mg or 0.5 mg (2 mg/3 mL) injection pen INJECT 0.25 MG INTO THE SKIN ONCE A WEEK DIRECTED 6 Pen 1 5 03/11/20 Discontinu ed(Dose adjustment ) Active Problems Problem Noted Date Diagnosed Date Ocular hypertension, bilateral 12/14/2023 Anastomotic ulcer S/P gastric bypass 09/09/2022 Nephrolithiasis 09/09/2022 Iron deficiency anemia following bariatric surge ry 08/13/2022 Snoring 05/25/2019 Overview (03/30/2024): 05/2019 Home Sleep Study did not reveal sleep apnea or nocturnal hypoxia. Anxiety 11/14/2017 Essential hypertension 03/17/2017 Type 2 diabetes mellitus wit h hyperglycemia ([facility] V24, [facility] V28) 03/17/2017 Resolved Problems Problem Noted Date Diagnosed Date Resolved Date Obesity 10/13/2017 03/30/2024 Encounters Date Type Department Care Team Description 03/12/2025 Results Follow-Up [address] [phone] Skye Wadsworth PA 03/11/2025 3:30 PM EST Office Visit Adult [address] [phone] Skye Wadsworth PA Essential hypertension (Primary Dx); Type 2 diabetes mellitus with hyperglycemia, without long-term current use of insulin ([facility] V24, [facility] V28); Type 2 diabetes mellitus in patient with obesity ([facility] V24, [facility] V28); Iron deficiency anemia following bariatric surgery; Anxiety; Primary insomnia; Antibody response exam; Screening for endocrine, metabolic and immunity disorder; Screening for endocrine, nutritional, metabolic and immunity disorder 03/11/2025 2:45 PM EST Lab Draw Station [address] Antibody response exam; Screening for endocrine, nutritional, metabolic and immunity disorder; Iron deficiency anemia following bariatric surgery; Type 2 diabetes mellitus with hyperglycemia, without long-term current use of insulin ([facility] V24, [facility] V28) from Last 3 Months Immunizations Immunization Administration Dates Next Due Influenza trivalent, 0.5mL, preservative free (Fluarix; FluLaval; Fluzone) ages 6mo and older (Afluria) 3 years and older 02/10/2021 Influenza, Unspecified 12/31/2022 Pfizer SARS-CoV-2 COVID-19, mRNA, LNP-S, preservative free 04/21/2021 Pneumococcal conjugate 20 va lent (Prevnar 20, PCV 20) 2mo and older 09/06/2024 Pneumococcal polysaccharide 23 valent (Pneumovax 23) 2yo and older 12/15/2017 Tdap Tetanus diptheria acell ular pertussis (Boostrix; Adacel) 7yo and older 11/05/2020,10/03/2018 Surgical History Surgery Date Site/Laterality Comments SECTION 2011, 2015, 2020 PROCEDURE: HISTORICAL TONSILLECTOMY PROCEDURE: HISTORICAL TONSILLECTOMY OTHER SURGICAL HISTORY PROCEDURE: RI STRABISMUS POST FIXJ SUTR TQ W/WO MUSC RECESSION; COMMENT: 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 GASTRIC BYPASS 09/07/2019 PROCEDURE: GASTRIC BYPASS FOR OBESIT TUBAL LIGATION 2020 PROCEDURE: HISTORICAL TUBAL LIGATION OTHER SURGICAL HISTORY 05/2023 PROCEDURE: HISTORICAL PANNICULECTOMY Medical History Medical History Date Comments Anxiety 11/14/2017 DX:Anxiety Essential hypertension 03/17/2017 DX:Essent ial hypertension Type 2 diabetes mellitus wit h hyperglycemia (CMS/HCC V24, CMS/HCC V28) 03/17/2017 DX:Type 2 diabetes mellitus with hyperglycemia (HCC) Anemia DX:Anemia Family history of colonic polyps DX:Family history of colonic polyps Family History Medical History Relation Name Comments No Known Problems Brother No Known Problems Daughter 1 No Known Problems Daughter 2 Alcohol abuse Father Diabetes Maternal Grandfather HTN, gl aucoma Multiple sclerosis Maternal Grandmother H [place], DM, CAD Diabetes Mother CHF, HTN, colon polyps > 10 Breast cancer Other maternal grand father's sister and mother No Known Problems Paternal Grandfather No Known Problems Paternal Grandmother No Known Problems Son Colon cancer Neg Hx Ovarian cancer Neg Hx Relation Name Status Comments Brother Alive Daughter 1 Alive Daughter 2 Alive Father Maternal Grandfather Alive Maternal Grandmother Alive Mother Other Paternal Grandfather Paternal Grandmother Son Alive Social History Tobacco Use Types Packs/Day Years Used Date Smoking Tobacco: Never Smokeless Tobacco: Never Tobacco Cessation:Counseling Given: Not Answered Alcohol Use Standard Drinks/Week Comments Yes 0 [...] Record ed Within the last 3 months, delroy w many times did you visit the [...] for your loved ones. For example, child attendant or elderly care for an older adult? [...] on file Sexual Orientation Not on file Obstetrics History Last Filed Vital Signs Vital Sign Reading Time Taken Comments Blood Pressure 117/75 03/11/2025 3:21 PM EST Pulse 72 03/11/2025 3:21 PM EST Temperature 36.5 C (97.7 F) 03/11/2025 3:21 PM EST Respiratory Rate 17 03/11/2025 3:21 PM EST Oxygen Saturation 97% 03/11/2025 3:21 PM EST Inhaled Oxygen Concentration - - Weight 86.6 kg (191 lb) 03/11/2025 3:21 PM EST Height 162.6 cm (5' 4 ) 03/11/2025 3:21 PM EST Body Mass Index 32.79 03/11/2025 3:21 PM EST Plan of Treatment Health Maintenance Due Date Last Done Comments Hepatitis B Vaccines (1 of 3 - 19+ 3-dose series) 2006 HPV Vaccines (1 - 3-dose SCDM series) 2014 Cervical Cancer Screening: Pap Smear 07/12/2023 07/11/2020 Diabetes: Annual Retina Eye Exam 06/23/2024 06/24/2023 COVID-19 Vaccine ( season) 2024 04/21/2021, 04/23/2020, 04/02/2020 Social Influencers of Health Screening 09/06/2025 09/06/2024 Diabetes: Blood Sugar Control Test (HGBA1C) 09/08/2025 03/11/2025, 02/07/2024, 02/07/2024 Diabetes: Annual Urine Albumin-Creatinine Ratio (uACR) 03/11/2026 03/11/2025, 02/07/2024 Diabetes: Annual Foot Exam 03/11/2026 03/11/2025, Diabetes: Annual GFR (Glomerular Filtration Rate) 03/11/2026 03/11/2025, 02/07/2024, 02/07/2024 Hypertension/CHF/CAD Annual BMP Blood Test 03/11/2026 03/11/2025, 02/07/2024, 02/07/2024 Cholesterol Screening (Lipid Panel) 03/11/2030 03/11/2025, 03/18/2023 DTaP,Tdap,and Td Vaccines (3 - Td or Tdap) 11/05/2030 11/05/2020, 10/03/2018 RSV Immunization Adult Patients (1 - 1-dose 75+ series) 2062 Depression Screening Completed 09/06/2024 Pneumococcal Vaccine: Pediatrics (0 to 5 Years) and At-Risk Patients (6 to 49 Years) Completed 09/06/2024, 12/15/2017 Influenza Vaccine Completed 01/18/2025, , 02/03/2023, Additional history exists HIB Vaccines Aged Out No longer eligi ble based on patient's age to complete this topic HIV Screening Discontinued Hepatitis A Vaccines Aged Out No long er eligible based on patient's age to complete this topic Hepatitis C Screening Discontinued IPV Vaccines Aged Out No longer eligi ble based on patient's age to complete this topic MMR Vaccines Aged Out No longer eligi ble based on patient's age to complete this topic Meningococcal ACWY Vaccine Aged Out N o longer eligible based on patient's age to complete this topic Meningococcal B Vaccine Aged Out No l onger eligible based on patient's age to complete this topic RSV Immunization Patients Under 20 months Aged Out No longer eligible based on patient's age to complete this topic Varicella Vaccines Aged Out No longer eligible based on patient's age to complete this topic Procedures Procedure Name Priority Date/Time Associated Diagnosis Comments IRON AND TIBC Routine 03/11/2025 4:10 PM EST Iron deficiency anemia following bariatric surgery FERRITIN Routine 03/11/2025 4:10 PM EST Iron deficiency anemia following bariatric surgery INTERFERON GAMMA INTERPRETATION Routine 03/11/2025 4:10 PM EST Antibody response exam Screening for endocrine, nutritional, metabolic and immunity disorder CBC WITH AUTO DIFFERENTIAL Routine 03/11/2025 4:10 PM EST Iron deficiency anemia following bariatric surgery INTERFERON GAMMA ANTIGEN 2 Routine 03/11/2025 4:10 PM EST Antibody response exam Screening for endocrine, nutritional, metabolic and immunity disorder INTERFERON GAMMA ANTIGEN 1 Routine 03/11/2025 4:10 PM EST Antibody response exam Screening for endocrine, nutritional, metabolic and immunity disorder INTERFERON GAMMA MITOGEN Routine 03/11/2025 4:10 PM EST Antibody response exam Screening for endocrine, nutritional, metabolic and immunity disorder INTERFERON GAMMA NIL Routine 03/11/2025 4:10 PM EST Antibody response exam Screening for endocrine, nutritional, metabolic and immunity disorder COMPREHENSIVE METABOLIC PANEL Routine 03/11/2025 4:10 PM EST Type 2 diabetes mellitus with hyperglycemia, without long-term current use of insulin ([facility] V24, [facility] V28) HEMOGLOBIN A1C Routine 03/11/2025 4:10 PM EST Type 2 diabetes mellitus with hyperglycemia, without long-term current use of insulin ([facility] V24, [facility] V28) LIPID PANEL WITH REFLEX TO DIRECT LDL Routine 03/11/2025 4:10 PM EST Type 2 diabetes mellitus with hyperglycemia, without long-term current use of insulin ([facility] V24, [facility] V28) MICROALBUMIN CREATININE URINE RATIO Routine 03/11/2025 4:10 PM EST Type 2 diabetes mellitus with hyperglycemia, without long-term current use of insulin ([facility] V24, [facility] V28) CBC AND DIFFERENTIAL Routine 03/11/2025 4:10 PM EST Iron deficiency anemia following bariatric surgery INTERFERON GAMMA FOR TB, QUALITATIVE Routine 03/11/2025 4:10 PM EST Antibody response exam Screening for endocrine, nutritional, metabolic and immunity disorder DIABETES FOOT EXAM Routine 12/09/2023 DIABETES EYE EXAM Routine 06/24/2023 PAP SMEAR Routine 07/11/2020 from Last 3 Months or Most Recently Relevant to Health Maintenance Results * Interferon gamma interpretation (03/11/2025 4:10 PM EST) Quantiferon Plus Interpretation Negative Negative LAB CHEMISTRY METHOD 03/15/2025 1:50 PM EST [facility] Blood Venous blood specimen / Unknown Venipuncture / Unknown 03/11/2025 4:10 PM EST 03/11/2025 4:10 PM EST us Skye Ananth CAMPBELL LAB BLOOD ORDERABLES Final Resul t [facility] [address] [place] [address], [place] [phone] * Interferon gamma antigen 2 (03/11/2025 4:10 PM EST) Blood Venous blood specimen / Unknown Venipuncture / Unknown 03/11/2025 4:10 PM EST 03/11/2025 4:10 PM EST us Skye Wadsworth PA LAB BLOOD ORDERABLES Final Resul t Performing Organization Address City/[facility] Co de Phone Number [facility] [address] [place] [address], [place] [phone] * Interferon gamma antigen 1 (03/11/2025 4:10 PM EST) Blood Venous blood specimen / Unknown Venipuncture / Unknown 03/11/2025 4:10 PM EST 03/11/2025 4:10 PM EST us Skye Wadsworth PA LAB BLOOD ORDERABLES Final Resul t Performing Organization Address [facility] de Phone Number [facility] [address] [place] [address], [place] [phone] * Interferon gamma mitogen (03/11/2025 4:10 PM EST) Blood Venous blood specimen / Unknown Venipuncture / Unknown 03/11/2025 4:10 PM EST 03/11/2025 4:10 PM EST us Skye Wadsworth PA LAB BLOOD ORDERABLES Final Resul t Performing Organization Address [facility] de Phone Number [facility] [address] [place] [address], [place] [phone] * Interferon gamma NIL (03/11/2025 4:10 PM EST) Blood Venous blood specimen / Unknown Venipuncture / Unknown 03/11/2025 4:10 PM EST 03/11/2025 4:10 PM EST us Skye Wadsworth PA LAB BLOOD ORDERABLES Final Resul t Performing Organization Address City/[facility] Co de Phone Number [facility] [address] [place] [address], [place] [phone] * Lipid panel with reflex to direct LDL (03/11/2025 4:10 PM EST) [facility] Cholesterol 130 0 - 200 mg/dL 03/11/2025 6:30 PM EST [facility] Triglycerides 53 0 - 150 mg/dL 03/11/2025 6:30 PM EST [facility] HDL 76 >=40 mg/dL 03/11/2025 6:30 PM [facility] LDL Calculated 43 0 - 100 mg/dL 03/11/2025 6:30 PM [facility] Comment:Estimated LDL Calcul ated using equation: Total cholesterol - HDL cholesterol - (Triglycerides/5) VLDL Cholesterol Gary 10.6 mg/dL 03/11/2025 6:30 PM [facility] Non HDL Chol. (LDL+VLDL) 54 <145 mg/dL 03/11/2025 6:30 PM [facility] Chol/HDL Ratio 1.7 0.0 - 4.4 03/11/2025 6:30 PM [facility] Blood Venous blood specimen / Unknown Venipuncture / Unknown 03/11/2025 4:10 PM EST 03/11/2025 4:10 PM EST us Skye CAMPBELL LAB BLOOD ORDERABLES Final Resul t [facility] [address] [place] [address], [place] [phone] * (ABNORMAL) CBC auto differential (03/11/2025 4:10 PM EST) [facility] WBC 5.6 4.8 - 10.8 K/[facility] LAB HEMETOLOGY METHOD 03/11/2025 6:17 PM EST [facility] RBC 4.60 3.80 - 4.80 M/mcL LAB HEMETOLOGY METHOD 03/11/2025 6:17 PM [facility] Hemoglobin 9.2(L) 11.5 - 16.0 g/dL LAB HEMETOLOGY METHOD 03/11/2025 6:17 PM [facility] Hematocrit 30.8(L) 35.0 - 47.0 % LAB HEMETOLOGY METHOD 03/11/2025 6:17 PM [facility] MCV 67.2(L) 79.0 - 98.0 FL LAB HEMETOLOGY METHOD 03/11/2025 6:17 PM [facility] MCH 20.1(L) 27.0 - 32.0 pcg LAB HEMETOLOGY METHOD 03/11/2025 6:17 PM [facility] MCHC 29.9(L) 32.0 - 37.0 g/dL LAB HEMETOLOGY METHOD 03/11/2025 6:17 PM [facility] RDW 17.0(H) 11.0 - 15.0 % LAB HEMETOLOGY METHOD 03/11/2025 6:17 PM [facility] Platelets 447(H) 130 - 400 K/mcL LAB HEMETOLOGY METHOD 03/11/2025 6:17 PM [facility] MPV 9.6 7.0 - 11.0 FL LAB HEMETOLOGY METHOD 03/11/2025 6:17 PM [facility] NRBC 0.0 <1.0 % LAB HEMETOLOGY METHOD 03/11/2025 6:17 PM [facility] NRBC Absolute 0.00 <0.10 K/mcL LAB HEMETOLOGY METHOD 03/11/2025 6:17 PM [facility] Neutrophils Relative 54.4 % LAB HEMETOLOGY METHOD 03/11/2025 6:17 PM [facility] Lymphocytes Relative 34.9 % LAB HEMETOLOGY METHOD 03/11/2025 6:17 PM EST [facility] Monocytes Relative 7.8 % LAB HEMETOLOGY METHOD 03/11/2025 6:17 PM [facility] Eosinophils Relative 1.6 % LAB HEMETOLOGY METHOD 03/11/2025 6:17 PM [facility] Basophils Relative 0.9 % LAB HEMETOLOGY METHOD 03/11/2025 6:17 PM [facility] Immature Granulocytes Relative 0.4 % LAB HEMETOLOGY METHOD 03/11/2025 6:17 PM [facility] Neutrophils Absolute 3.05 1.50 - 7.00 K/mcL LAB HEMETOLOGY METHOD 03/11/2025 6:17 PM [facility] Lymphocytes Absolute 1.96 1.00 - 5.00 K/mcL LAB HEMETOLOGY METHOD 03/11/2025 6:17 PM [facility] Monocytes Absolute 0.44 0.20 - 1.00 K/mcL LAB HEMETOLOGY METHOD 03/11/2025 6:17 PM [facility] Eosinophils Absolute 0.09 0.00 - 0.50 K/mcL LAB HEMETOLOGY METHOD 03/11/2025 6:17 PM [facility] Basophils Absolute 0.05 0.00 - 0.20 K/mcL LAB HEMETOLOGY METHOD 03/11/2025 6:17 PM [facility] Immature Granulocytes Absolute 0.02 0.00 - 0.03 K/mcL LAB HEMETOLOGY METHOD 03/11/2025 6:17 PM [facility] Blood Venous blood specimen / Unknown Venipuncture / Unknown 03/11/2025 4:10 PM EST 03/11/2025 4:10 PM EST us Skye Ananth CAMPBELL LAB BLOOD ORDERABLES Final Resul t [facility] [address] [place] [address], [place] [phone] * (ABNORMAL) Iron and TIBC (03/11/2025 4:10 PM EST) Iron 18(L) 40 - 150 mcg/dL 03/12/2025 10:37 AM EST [facility] TIBC 519(H) 250 - 450 mcg/dL 03/12/2025 10:37 AM EST [facility] Iron Saturation 3(L) 15 - 50 % 10:37 AM EST [facility] Blood Venous blood specimen / Unknown Venipuncture / Unknown 03/11/2025 4:10 PM EST 03/11/2025 4:10 PM EST Skye Wadsworth PA LAB BLOOD ORDERABLES Final Resul t Performing Organization Address City/[facility]/ZIP Co de Phone Number [facility] [address] [place] [address], [place] [phone] * Microalbumin creatinine urine ratio (03/11/2025 4:10 PM EST) Pathologist [facility] Creatinine, Urine 98.0 mg/dL 03/11/2025 6:58 PM EST [facility] Microalb, Ur <3.0 0.0 - 29.0 mg/L 03/11/2025 6:58 PM EST [facility] Microalb/Creat Ratio <3 <30 mg/g creat 03/11/2025 6:58 PM EST [facility] Urine Urine specimen obtained by clean catch procedure / Unknown Non-blood Collection / Unknown 03/11/2025 4:10 PM EST 03/11/2025 4:10 PM EST us Skye Wadsworth PA LAB URINE ORDERABLES Final Resul t [facility] [address] [place] [address], [place] [phone] * Hemoglobin A1c (03/11/2025 4:10 PM EST) [facility] Hemoglobin A1C 6.3 <6.5 % LAB CHEMISTRY METHOD 03/11/2025 8:15 PM EST [facility] Mean Bld Glu Estim. 134 mg/dL LAB CHEMISTRY METHOD 03/11/2025 8:15 PM EST [facility] Blood Venous blood specimen / Unknown Venipuncture / Unknown 03/11/2025 4:10 PM EST 03/11/2025 4:10 PM EST us Skye CAMPBELL LAB BLOOD ORDERABLES Final Resul t Performing Organization Address City/[facility]/ZIP Co de Phone Number [facility] [address] [place] [address], [place] [phone] * (ABNORMAL) Ferritin (03/11/2025 4:10 PM EST) [facility] Ferritin 5(L) 7 - 271 ng/mL 03/12/2025 10:43 AM EST [facility] Blood Venous blood specimen / Unknown Venipuncture / Unknown 03/11/2025 4:10 PM EST 03/11/2025 4:10 PM EST us Skye CAMPBELL LAB BLOOD ORDERABLES Final Resul t [facility] [address] [place] [address], [place] [phone] * (ABNORMAL) Comprehensive metabolic panel (03/11/2025 4:10 PM EST) [facility] Sodium 137 133 - 145 mmol/L 03/11/2025 6:30 PM EST [facility] Potassium 4.3 3.5 - 5.5 mmol/L 03/11/2025 6:30 PM [facility] Chloride 102 96 - 110 mmol/L 03/11/2025 6:30 PM [facility] CO2 29 21 - 32 mmol/L 03/11/2025 6:30 PM [facility] Anion Gap 6 3 - 11 03/11/2025 6:30 PM [facility] Glucose 102(H) 70 - 100 mg/dL 03/11/2025 6:30 PM [facility] BUN 17 5 - 25 mg/dL 03/11/2025 6:30 PM [facility] Creatinine 0.74 0.50 - 1.10 mg/dL 03/11/2025 6:30 PM [facility] eGFR 106 >=60 mL/min/1. 73m2 03/11/2025 6:30 PM [facility] Comment:Calculation based on the Chronic Kidney Disease Epidemiology Collaboration (CKD-EPI) equation refit without adjustment for race. BUN/Creatinine Ratio 23.0 03/11/2025 6:30 PM [facility] Calcium 8.5 8.5 - 10.5 mg/dL 03/11/2025 6:30 PM [facility] AST (SGOT) 26 10 - 42 unit/L 03/11/2025 6:30 PM [facility] ALT (SGPT) 25 10 - 60 unit/L 03/11/2025 6:30 PM [facility] Alkaline Phosphatase 115 42 - 121 unit/L 03/11/2025 6:30 PM [facility] Total Protein 6.8 6.0 - 8.0 g/dL 03/11/2025 6:30 PM [facility] Albumin 4.0 3.2 - 5.0 g/dL 03/11/2025 6:30 PM [facility] Total Bilirubin 0.3 0.0 - 1.4 mg/dL 03/11/2025 6:30 PM EST [facility] Blood Venous blood specimen / Unknown Venipuncture / Unknown 03/11/2025 4:10 PM EST 03/11/2025 4:10 PM EST Skye Ananth PA LAB BLOOD ORDERABLES Final Resul t [facility] [address] [place] [address], [place] [phone] * Diabetes Foot Exam (12/09/2023) Pathologist [facility] Diabetes: Annual Foot Exam abstracted Historical Provider MD HEALTH MAINTENANCE Final Result * Diabetes Eye Exam (06/24/2023) Pathologist [facility] Diabetes: Annual Retina Eye Exam abstracted Historical Provider MD HEALTH MAINTENANCE Final Result * Pap Smear (07/11/2020) Pathologist [facility] Pap smear negative, abstracted Historical Provider MD HEALTH MAINTENANCE Final Result from Last 3 Months or Most Recently Relevant to Health Maintenance [place] [address] [address] [place] [address] [employer] [facility] Care Teams Senior Litigation Paralegal Relationship Specialty Start Date End Date Dominic Rodrigues MD [address] [place] [address] [facility] - General 08/27/22
--- OUTSIDE RECORDS SUMMARY | 2025-03-18 03:37 | XMS_ITS | Clinical Summary ---
Author Organization [facility] Address [address] [place] [id number] Phone Care Team Providers Care Car Pick Up Driver Name Role Phone Dominic Rodrigues MD Primary Care Provider Allergies Active Allergy Reactions Criticality Noted Date Comments Insulin Glargine Flushing,Rash Low 03/17/2017 Other 02/23/2023 Other reaction(s): pine trees Medications hydroCHLOROthiazi de (HYDRODIURIL) 25 MG tablet Take 1 tablet by mouth every morning. 3 Active lisinopril (PRINIVIL,ZESTRIL ) 10 MG tablet Take 1 tablet by mouth daily. 3 Active OZEMPIC 1 mg/dose (4 mg/3 mL) subcutaneous injection pen 3 Active Medication-Free TextIndications:C elebrate bariatric vitamin, vit b12,iron, vit C Indications: Celebrate bariatric vitamin, vit b12,iron, vit C Active ferrous sulfate 325 mg (65 mg [place] iron) EC tablet Take 1 tablet by mouth daily. Active pantoprazole (PROTONIX) 40 MG tablet Take 1 tablet by mouth daily. Active ketoconazole 2 % cream Apply to affected areas twice daily for 2 weeks 3 Active ondansetron (ZOFRAN) 4 MG tablet Take 1 tablet (4 mg total) by mouth every 8 (eight) hours as needed for nausea. 30 tablet 4 Active oxyCODONE-acetami nophen (PERCOCET) 5-325 mg per tablet Take 1 tablet by mouth every 4 (four) hours as needed for pain (specific location in comments). Partial fill ok 30 tablet 4 Active oxyCODONE-acetami nophen (PERCOCET) 5-325 mg per tablet Take 1 tablet by mouth every 4 (four) hours as needed for pain (specific location in comments). 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 Not on roberto carlos e 11/12/2022 Are you concerned about learning? Not on file 11/12/2022 No 11/12/2022 No 11/12/2022 Digital Access Answer Date Recorded No 11/12/2022 No 11/12/2022 Reliable internet access at home? Not on file 11/12/2022 Device with a working camera? Not on file Comments No Sex and Gender Information Value Date Recorded Sex Assigned at Female 01/03/2023 5:15 PM EDT Legal Sex Female 3:59 PM EDT Gender Identity Female 01/03/2023 5:15 PM EDT Sexual Orientation Not on file Last Filed Vital Signs Vital Sign Reading Time Taken Comments Blood Pressure 148/93 05/30/2023 1:30 PM EST Pulse 93 05/30/2023 12:22 PM EST Temperature 36.6 C (97.9 F) 05/30/2023 1:30 PM EST Respiratory Rate 17 05/30/2023 12:22 PM EST Oxygen Saturation 97% 05/30/2023 1:30 PM EST Inhaled Oxygen Concentration - - Weight 68.9 kg (152 lb) 05/30/2023 6:20 AM EST Height 162.6 cm (5' 4 ) 05/30/2023 6:20 AM EST Body Mass Index 26.09 05/30/2023 6:20 AM EST Plan of Treatment Health Maintenance Due Date Last Done Comments CREATININE LEVEL 1987 POTASSIUM LEVEL 1987 DEPRESSION SCREENING 1999 HEPATITIS C SCREENING 2005 HIV ONE-TIME SCREENING (18-6 5 YEARS) 2005 PAP SMEAR 01/07/2008 SCREENING FOR DIABETES 2022 INFLUENZA VACCINE (#1) 2024 , 02/10/2021 COVID-19 VACCINE (2024-2 6 season) 2024 04/22/2021, 04/23/2020, 04/02/2020 Adult Td,Tdap Booster 11/05/2030 11/05/2020 , 10/03/2018 PNEUMOCOCCAL VACCINES (0-49 years) Aged Out 12/15/2017 No longer eligible b ased on patient's age to complete this topic SMOKING STATUS SCREENING (On ce After 26 Yrs) Completed 05/30/2023 HEPATITIS A VACCINES Aged Out No long er eligible based on patient's age to complete this topic HIB VACCINES Aged Out No longer eligi ble based on patient's age to complete this topic MENINGOCOCCAL VACCINES (ACWY) Aged Out No longer eligible based on patient's age to complete this topic MENINGOCOCCAL VACCINES (B) Aged Out N o longer eligible based on patient's age to complete this topic Medical Devices Not on file Insurance [employer] Advance Directives For more information, please contact: [phone] (9AM - 5PM [facility], Tuesday-Tuesday) * Full Code (Latest Code Status on File) Date Activated Date Inactivated Comments 05/30/2023 6:11 AM Question Answer Comments Code Status Confirmed With: Patient Care Teams Car Pick Up Driver Relationship Specialty Start Date End Date Dominic Rodrigues MD [address] [place] [address] PCP - General Internal Medicine 11/11/22 Additional Source Comments The information contained in this document represents components of the legal health record. It is not the complete legal health record.[facility]
--- OUTSIDE RECORDS SUMMARY | 2025-03-18 03:37 | XMS_ITS | Encounter Summary ---
Author Organization [facility] Address [address] [place] [phone] Phone Care Team Providers Care Fiberglass Insulation Installer Name Role Phone Dominic Rodrigues MD Primary Care Provider Encounter Details Date Type Department Care Team (Late st Contact Info) Description 05/30/2023 Procedure Pass OR Admitting Dept - Virtual Department [address] [place] [address] Social History Tobacco Use Types Packs/Day Years [...] PM EDT Sexual Orientation Not on file documented as of this encounter Functional Status * Calculated C-SSRS Risk Score (Lifetime/Recent) Answer Date of Assessment Author No Risk Indicated 05/30/2023 6:12 AM Tyesha Ramirez RN * [place] Suicide Severity Rating Scale (Screener/Recent Self-Report) Question Answer Date of Assessment Author 2. Non-Specific Active Suici jamil Thoughts (Past 1 Month) No 05/30/2023 6:12 AM Arlyn Sanchez RN documented as of this encounter Plan of Treatment Not on file documented as of this encounter Visit Diagnoses Not on filedocumented in this encounter Care Teams Fiberglass Insulation Installer Relationship Specialty Start Date End Date Dominic Rodrigues MD [address] [place] [address] PCP - General Internal Medicine 11/11/22 documented as of this encounter Additional Source Comments The information contained in this document represents components of the legal health record. It is not the complete legal health record.[facility]
--- OUTSIDE RECORDS SUMMARY | 2025-03-18 03:37 | XMS_ITS | Clinical Summary ---
Author Organization [facility] Address [address] [place] [address] Care Team Providers Care Dinkey Dispatcher Name Role Phone Unavailable Primary Care Provider Unavailabl e Social History Tobacco Use Types Packs/Day Years Used Date Smoking Tobacco: Never Assessed Comments Unknown Sex and Gender Information Value Date Recorded Sex Assigned at Not on file Legal Sex Female 9:08 AM EDT Gender Identity Not on file Sexual Orientation Not on file Plan of Treatment Health Maintenance Due Date Last Done Comments Hepatitis C Screening 1987 Pap Smear 2003 DTaP/Tdap/Td (1 - Tdap) 2005 Hep B (1 of 3 - 19+ 3-dose series) 2006 COVID-19 Vaccine (2024-2 6 season) 2024 Influenza (#1) 2024 Zoster (Shingrix) (1 of 2) 2037 HPV Vaccine (No Doses Required) Completed Hep A Aged Out No longer eligi ble based on patient's age to complete this topic Hib Aged Out No longer eligi ble based on patient's age to complete this topic Meningococcal ACWY Aged Out No longer eligible based on patient's age to complete this topic Pneumococcal Aged Out No longer eligi ble based on patient's age to complete this topic
[2025-03-18 03:45] LABS: IDNOW Serial# 58CA691E; Strep A Nucleic Acid Negative (Negative)
[2025-03-18 04:13] LABS: Resp Syncy Virus RNA Qual PCR NEGATIVE (Negative); SARS COV2 PCR INHOUSE NEGATIVE (Negative)
--- NOTE | 2025-03-18 04:52 | ED.URI ---
HPI - URI/Sore Throat General Chief Complaint: Upper Respiratory Symptoms Stated Complaint: General Medical Time Seen by Provider: 03/18/25 04:45 Source: patient Mode of arrival: ambulatory Limitations: no limitations History of Present Illness ED Provider: Dr. Latha Vieira HPI Narrative: Patient comes to the emergency room complaining of sore throat for a proximally 24 hours. Patient states that she has throat pain that gets worse with swallowing. Denies any sick contacts. Patient denies fever or chills. Denies any nausea vomiting or diarrhea. Denies any shortness of breath. Related Data Home Medications ?Medication ?Instructions ?Recorded ?Confirmed [id number] 45 mg-folic 1 cap PO DAILY 08/06/20 02/08/24 acid 800 mcg-vit K 120 mcg capsule (Bariatric Multivitamins) hydrochlorothiazide 25 mg tablet 12.5 mg PO DAILY 08/12/22 02/08/24 lisinopril 10 mg tablet 10 mg PO DAILY 08/17/22 02/08/24 semaglutide 0.25 mg or 0.5 mg (2 0.5 mg subcut SA 08/17/22 02/08/24 mg/3 mL) subcutaneous pen injector (Ozempic) Previous Rx's ?Medication ?Instructions ?Recorded ferrous sulfate 325 mg (65 mg 325 mg PO DAILY #30 tabs 06/13/20 iron) tablet cholecalciferol (vitamin D3) 50 50 mcg PO DAILY #90 caps 08/12/22 mcg (2,000 unit) capsule pantoprazole 40 mg tablet,delayed 40 mg PO DAILY #90 tabs 02/12/25 release Allergies Allergy/AdvReac Type Severity Reaction Status Date / Time insulin glargine (From AdvReac JUSTINA Calero Verified 03/18/25 03:20 LANTUS U-100 INSULIN) ING Review of Systems Review of Systems: Constitutional : No Weight loss, No Fever, No Chills, No Night Sweats, No Fatigue, No Malaise ENT/Mouth : No Hearing loss, No Ear Pain, No Nasal Congestion, No Sinus Pain, No Hoarseness, complaining of sore throat, No Rhinorrhea, No Swallowing Difficulty Eyes: No Eye Pain, No Swelling, No Redness, No Foreign Body, No Discharge, No Vision Changes Cardiovascular : No Chest Pain, No SOB, No Dyspnea on Exertion, No Orthopnea, No Edema, No Palpitations Respiratory : No Cough, No Sputum, No Wheezing, No Smoke Exposure, No Dyspnea Gastrointestinal : No Nausea, No Vomiting, No Diarrhea, No Constipation, No abdominal Pain, No Hematochezia, No Melena Genitourinary : no irregular bleeding, No Dysuria, No Urinary Frequency, No Hematuria, No Urinary Incontinence, No Urgency, No Flank Pain, No Urinary Flow Changes, No Hesitancy Musculoskeletal : No joint pain, No Myalgias, No Joint Swelling Skin : No Skin Lesions, No rash Neuro : No Weakness, No Numbness, No Paresthesias, No Loss of Consciousness, No Dizziness, No Headache Psych : No Anxiety/Panic, No Depression, No SI/HI/AH/VH, No Social Issues, Heme/Lymph: No Bruising, No Bleeding,No Lymphadenopathy Endocrine : No Polyuria, No Polydipsia, No Temperature Intolerance PMFSH Past Medical History Medical History Anemia Hx of gastric ulcer Diabetes HTN (hypertension) Surgical History Hx of cystoscopy Hx of tubal ligation Hx of esophagogastroduodenoscopy History of Rogelio-en-Y gastric bypass Hx laparoscopic cholecystectomy S/P eye surgery Hx of tonsillectomy Hx of section Family History Family History Father Heart disease HTN (hypertension) Hyperlipidemia Mother COPD (chronic obstructive pulmonary disease) Diabetes Obesity Fibromyalgia HTN (hypertension) Hyperlipidemia Son No problems noted. Daughter No problems noted. Social History Social History Household Members: Spouse and Children Housing: House Alcohol intake: never Patient Tobacco Use Status: Never used Tobacco Second Hand Smoke Exposure: No Advance Directives: No Advance Directives Information Provided: No service: No Current occupational status: employed Physical Exam Exam: Exam: Appearance: Alert. Oriented X3. No acute distress. Eyes: Pupils equal, round and reactive to light. ENT: Pharynx normal. There is no erythema, no exudates, there are no obvious signs of abscesses, there is no significant swelling, uvula midline, no soft palate phlegmon Neck: Normal inspection. Neck supple. No lymph nodes noted. No crepitus CVS: Normal heart rate and rhythm. Pulses normal. Normal S1 and S2 Respiratory: No respiratory distress. Breath sounds normal. No Wheezing. No rales Abdomen: Soft and nontender. No rigidity. No distention. Skin: Skin warm and dry. Normal skin color. Normal skin turgor. Extremities: No lower extremity edema. No Lacerations. No Rash Neuro: Oriented X 3. No motor deficit. No sensory deficit. Moving all extremities. No slurred speech. CN 2 through 12 grossly intact Psych: calm, cooperative, normal affect Vital Signs: Vital Signs: Last Vital Signs Temp 98.4 F 03/18/25 03:19 Pulse 79 03/18/25 03:19 Resp 16 03/18/25 03:19 BP 135/80 03/18/25 03:19 Pulse Ox 100 03/18/25 03:19 O2 Del Method Room Air 03/18/25 03:19 BMI result Body Mass Index 31.9 Medical Decision Making Medical Decision Making MDM Narrative: I discussed the labs with the patient, she tested negative for influenza RSV and COVID. Also negative for strep Patient likely has viral pharyngitis. Patient's oropharynx does not seem to be grossly infected. Very unlikely that she may have mono Patient was given viscous lidocaine and Decadron for symptomatic relief. Patient agrees with plan, patient states that she has several cold/flu-like medications at home, Tylenol and Motrin. Differential Diagnosis Differential Diagnoses: The differential diagnosis associated with the presentation includes (Influenza, RSV, COVID, viral pharyngitis, less likely pharyngeal abscess and mononucleosis) Lab Data Labs: Lab Results 03/18/25 Range/Units 03:30 Influenza Type A (PCR) NEGATIVE (Negative) Influenza Type B (PCR) NEGATIVE (Negative) RSV RNA Qual (PCR) NEGATIVE (Negative) SARS-CoV-2 RNA (RT-PCR) NEGATIVE (Negative) S. pyogenes GrpA LUCIANA Negative (Negative) Discharge Plan Discharge Clinical Impression: Acute viral pharyngitis Patient Disposition: Home, Self-Care Instructions: Influenza (ED) Additional Instructions: Please follow-up with your primary care physician tomorrow. If you have any worsening or new symptoms, please return to the emergency room or call 911 Prescriptions: No Action ferrous sulfate 325 mg (65 mg iron) tablet 325 mg PO DAILY Qty: 30 8RF Rx Instructions: Take with 500m g Vitamin C, do not take with milk products. pantoprazole 40 mg tablet,delayed release (DR/EC) 40 mg PO DAILY Qty: 90 3RF lisinopril 10 mg tablet 10 mg PO DAILY Ozempic 0.25 mg or 0.5 mg (2 mg/3 mL) pen injector 0.5 mg subcut SA Bariatric Multivitamins 45 mg iron- 800 mcg-120 mcg capsule 1 cap PO DAILY hydrochlorothiazide 25 mg tablet 12.5 mg PO DAILY cholecalciferol (vitamin D3) 50 mcg (2,000 unit) capsule 50 mcg PO DAILY Qty: 90 3RF Stand Alone Forms: Work/School Release Print Language: Peruvian
[2025-03-18 05:10] VITALS: BP 127/83; PULSE 72; RESP 16; TEMP 36.8; O2SAT 100
[2025-03-18] MEDS: Lidocaine HCl Viscous 2 % 15 ML SOLUTION MUCOUS MEM (05:10)
[2025-03-18 05:37] VITALS: BP 127/83; PULSE 72; RESP 16; TEMP 36.8; O2SAT 100
== END 2025-03-18 05:38 | disposition home or self-care (01) ==
PROVIDERS: Emergency Provider Emergency Medicine; PCP Internal Medicine
DX: J02.8 Acute pharyngitis due to other specified organisms (principal); I10 Essential (primary) hypertension; E11.9 Type 2 diabetes mellitus without complications; Z03.818 Encounter for observation for suspected exposure to other biological agents ruled out
CPT/HCPCS: 87637; 87651; 99282; 99283; J8540